=== PATIENT | female | born 1990 ===

== ENCOUNTER 2020-03-03 09:58 | Emergency (ER) | payer MEDICAID, SELFPAY ==
--- NOTE | 2020-03-03 | ECG_ITS ---
Test Reason : CHEST PAIN Blood Pressure : / mmHG Vent. Rate : 069 BPM Atrial Rate : 069 BPM P-R Int : 148 ms QRS Dur : 094 ms QT Int : 420 ms P-R-T Axes : 023 008 009 degrees QTc Int : 450 ms Normal sinus rhythm Normal ECG When compared with ECG of 16-SEP-2017 18:59, No significant change was found Referred By: Girish Andrade Electronically Signed By:Leonel Bingham
[2020-03-03 10:57] VITALS: BP 157/78; PULSE 88; RESP 18; TEMP 37.1; O2SAT 98; BMI 44.6
== END 2020-03-03 12:40 | disposition left against medical advice (07) ==
PROVIDERS: Emergency Provider Emergency Medicine
DX: R07.9 Chest pain, unspecified (principal); F17.200 Nicotine dependence, unspecified, uncomplicated
CPT/HCPCS: 93005; 99283

== ENCOUNTER 2020-03-31 14:40 | Outpatient (REF) | payer MEDICAID, SELFPAY ==
[2020-03-31 17:19] LABS: Glucose Urine UA NEG (NEG); Leukocyte Esterase Urine 1+ (NEG); Nitrite Urine NEG (NEG); PH 6.5 (5.0-8.0); Specific Gravity - Urine 1.025 (1.005-1.025); Urine Blood NEG (NEG); Urine Ketones NEG (NEG); Urine Protein NEG (NEG-TRACE)
[2020-03-31 17:49] LABS: Appearance Urine HAZY; Color Urine YELLOW
[2020-03-31 18:01] LABS: RBC Urine 0 /HPF (0); Squamous Epithelial Cell Urine 1+ /LPF
[2020-03-31 18:02] LABS: Bacteria Urine 2+ /LPF
== END 2020-03-31 14:41 | disposition home or self-care (01) ==
LOC: HO.LNP 14:40
PROVIDERS: Visit Provider Advanced Practice Midwife
DX: O21.9 Vomiting of pregnancy, unspecified (principal); O26.899 Other specified pregnancy related conditions, unspecified trimester; R30.0 Dysuria; Z3A.00 Weeks of gestation of pregnancy not specified
CPT/HCPCS: 81001; 81025; 99202

== ENCOUNTER 2020-04-07 12:31 | Outpatient (REF) | payer MEDICAID, SELFPAY ==
--- NOTE | 2020-04-07 12:36 | US_ITS ---
EXAMINATION: FIRST TRIMESTER OB ULTRASOUND CLINICAL INFORMATION: Unknown LMP. Check size and dates. COMPARISON: None TECHNIQUE: Transabdominal first trimester OB ultrasound FINDINGS: The uterus is normal in size and shape. There is an intrauterine gestational sac. Ruby-rump length measures 2.6 cm suggesting gestational age of 9 weeks 3 days with estimated date of delivery of 11/07/2020. heart rate is 160 bpm. There is a yolk sac. The right maternal ovary is normal and measures 4.6 x 2 x 2.5 cm. The left maternal ovary measures 3.2 x 1.6 x 3.2 cm and contains a small 1.4 x 0.7 x 1.2 cm cyst. There is no fluid in the pelvis. US/US OB <= 14 weeks fetus IMPRESSION: Single viable intrauterine . From today's measurements, gestational age is estimated at 9 weeks 3 days with estimated date of delivery of 11/07/2020.
== END 2020-04-07 12:32 | disposition home or self-care (01) ==
LOC: HO.US 12:31
PROVIDERS: Visit Provider Advanced Practice Midwife
DX: O21.9 Vomiting of pregnancy, unspecified (principal); O26.841 Uterine size-date discrepancy, first trimester; Z3A.09 9 weeks gestation of pregnancy
CPT/HCPCS: 76801

== ENCOUNTER → 2020-05-06 11:06 | Outpatient (BNVA) | payer MEDICAID, SELFPAY | PROVIDERS: Visit Provider Advanced Practice Midwife | CPT/HCPCS: 99212 ==

== ENCOUNTER 2020-05-07 08:53 | Outpatient (REF) | payer MEDICAID, SELFPAY ==
--- NOTE | ~2020-05-07 | US_ITS ---
EXAMINATION: OBSTETRICAL ULTRASOUND, FIRST TRIMESTER HISTORY: 30-year-old at 13.5 weeks of gestation NT screening COMPARISON: 04/07/2020 TECHNIQUE: Real time transabdominal imaging with color and M-mode Doppler. FINDINGS: A single, live IUP CRL of 77 mm c/w 13.6wks is noted. Heart Rate: 160 beats per minute. Normal yolk sac seen. NT was 1.5.mm. NB Present The embryo appears sonographically wnl for this GA. Both maternal ovaries are seen and appear normal. GESTATIONAL AGE: 1. Established GA: 13.5 wks 2. GA from [facility]: 13.6 wks ESTIMATED DATE OF DELIVERY: 1. Established VALENTIN: 11/08/2019 2. VALENTIN from A: 11/06/2020 US/US OB 1T nuc measure IMPRESSION: 1. A single live IUP 2. Size equals dates 3. NT of 1.5 mm MFM Consultation: I reviewed the ultrasound findings along with significance of NT measurement. The NT of less than 3mm is generally reassuring. However, the sensitivity for T21 detection is only 60%. I reviewed the availability of serum aneuploidy screening which includes cell-free DNA and placental protein based tests. I discussed the sensitivity, false-positive rate, and other limitations associated with each test. I also reviewed the availability of invasive diagnostic tests that are associated small but definite risk of miscarriage. We also reviewed the differences between screening tests and diagnostic tests. After our discussion, she opted for the First trimester screening that is based on cell-free DNA or non-invasive testing (NIPT). The result will be faxed to your office in approximately 7 days. A follow up at 18 weeks for survey has been scheduled. Thank you very much for this referral. Total time 30 minutes. The time spent was devoted to counseling the patient about the disease and diagnosis, coordinating care including reviewing her records, pertinent lab data and studies, as well as discussing diagnostic evaluation and workup, plan therapeutic interventions and future disposition of care. This includes any additional research needed to obtain further information in formulating the plan of care of this patient. This note was generated with a voice recognition program. Please excuse any errors which may have been overlooked during my review of this note. Sometimes these errors may affect the content or meaning of a given sentence.
== END 2020-05-07 08:54 | disposition home or self-care (01) ==
LOC: HO.US 08:53
PROVIDERS: Visit Provider Advanced Practice Midwife
DX: O99.211 Obesity complicating pregnancy, first trimester (principal); E66.9 Obesity, unspecified; Z3A.13 13 weeks gestation of pregnancy; Z36.82 Encounter for antenatal screening for nuchal translucency
CPT/HCPCS: 76813; 81003; 99212

== ENCOUNTER 2020-05-07 12:55 | Outpatient (REF) | payer MEDICAID, SELFPAY ==
[2020-05-08 12:02] LABS: BV Int Neg Control Negative (Negative); BV Int Pos Control Positive (Positive)
[2020-05-08 13:22] LABS: C. trachomatis RNA TMA NOT DETECTED (NOT DETECTED); N. gonorrhoeae RNA TMA NOT DETECTED (NOT DETECTED)
== END 2020-05-07 12:56 | disposition home or self-care (01) ==
LOC: HO.LAB 12:55
PROVIDERS: Visit Provider Advanced Practice Midwife
DX: Z34.90 Encounter for supervision of normal pregnancy, unspecified, unspecified trimester (principal)
CPT/HCPCS: 36415; 87480; 87491; 87510; 87591; 87660; 88142

== ENCOUNTER 2020-05-10 09:39 | Outpatient (REF) | payer MEDICAID, SELFPAY ==
[2020-05-10 11:42] LABS: MANUAL DIFF FLAG NO
[2020-05-10 11:48] LABS: Basophils Percent Auto 0.2 % (0-2); Eosinophils Absolute Auto 0.1 X10*3/uL (0.0-0.4); Eosinophils Percent Auto 1.4 % (0-4); Hematocrit 31.4 % (37-47); Hemoglobin 10.3 g/dl (12.0-16.0); Imm Gran Abs Auto 0.02 X10*3/uL (0.00-0.03); Imm Gran Pct Auto 0.2 % (0.0-0.4); Lymphocytes Absolute Auto 1.9 X10*3/uL (1.2-4.9); Lymphocytes Percent Auto 19.8 % (20-40); Mean Corpuscular HGB Conc 32.8 g/dl (31.0-35.0); Mean Corpuscular Hemoglobin 28.9 pg (27.0-33.0); Mean Platelet Volume 11.1 fL (9.4-12.3); Monocytes Absolute Auto 0.4 X10*3/uL (0.1-1.2); Monocytes Percent Auto 4.3 % (2-11); Neutrophils Absolute Auto 7.2 X10*3/uL (2.0-8.3); Neutrophils Percent Auto 74.1 % (45-73); Platelet Count 254 X10*3/uL (160-400); Red Blood Count 3.57 X10*6/uL (4.20-5.50); Red Cell Distribution Width 13.8 % (11.0-16.0); White Blood Count 9.8 X10*3/uL (4.8-10.8)
[2020-05-10 12:11] LABS: Glucose 1 Hour 137 mg/dL
[2020-05-10 12:18] LABS: Amphetamine Screen Urine Not Detected (Not Detect); Barbiturates, Urine Not Detected (Not Detect); Benzodiazepines Screen Urine Not Detected (Not Detect); Cannabinoid Screen Urine Not Detected (Not Detect); Cocaine Screen Urine Not Detected (Not Detect); Opiate Screen Urine Not Detected (Not Detect); Phencyclidine Screen Urine Not Detected (Not Detect)
[2020-05-10 12:41] LABS: Syphilis Screen Nonreactive (Nonreactive)
[2020-05-11 04:35] LABS: HIV Num 1 0.05 S/CO (0.00-0.99)
[2020-05-11 04:36] LABS: HIV AB/AG Nonreactive (Nonreactive)
[2020-05-11 04:44] LABS: HBsAGNum1 0.14 S/CO (0.00-0.99); Hepatitis B Surface Antigen Negative (Negative); ~HepC Num1 0.06 S/CO (0.00-0.79); ~Hepatitis C Antibody Nonreactive (Nonreactive)
[2020-05-11 21:52] LABS: Rubella IgG Antibody <0.90 Index
== END 2020-05-10 09:40 | disposition home or self-care (01) ==
LOC: HO.LAB 09:39
PROVIDERS: Visit Provider Advanced Practice Midwife
DX: Z34.90 Encounter for supervision of normal pregnancy, unspecified, unspecified trimester (principal); Z32.01 Encounter for pregnancy test, result positive
CPT/HCPCS: 80307; 82951; 85025; 86762; 86780; 86787; 86803; 86850; 86900; 86901; 87086; 87340; 87389

== ENCOUNTER → 2020-06-04 14:50 | Outpatient (BNVA) | payer MEDICAID, SELFPAY | PROVIDERS: Visit Provider Advanced Practice Midwife | DX: O99.810 Abnormal glucose complicating pregnancy (principal); Z3A.17 17 weeks gestation of pregnancy; E66.01 Morbid (severe) obesity due to excess calories; A59.9 Trichomoniasis, unspecified; Z36.3 Encounter for antenatal screening for malformations | CPT/HCPCS: 99212 ==

== ENCOUNTER → 2020-06-08 14:16 | Outpatient (BNVA) | payer MEDICAID, SELFPAY | PROVIDERS: Visit Provider Advanced Practice Midwife | DX: Z34.02 Encounter for supervision of normal first pregnancy, second trimester (principal); Z3A.18 18 weeks gestation of pregnancy; A59.9 Trichomoniasis, unspecified; R60.9 Edema, unspecified; R10.33 Periumbilical pain; Z36.3 Encounter for antenatal screening for malformations | CPT/HCPCS: 81003; 99212 ==

== ENCOUNTER 2020-06-11 10:38 | Outpatient (REF) | payer MEDICAID, SELFPAY ==
--- NOTE | ~2020-06-11 | US_ITS ---
EXAMINATION: US OBSTETRICAL CLINICAL INFORMATION: 30-year-old at 18.5 weeks of gestation Screening for COMPARISON: 05/07/2020 TECHNIQUE: Real-time transabdominal ultrasound was performed using C1-5 megahertz transducer. FINDINGS: A single, active, fetus is seen in transverse presentation. The placenta is anterior without previa, and the amniotic fluid volume is wnl. The placental cord insertion is marginal. Velamentous cord insertion could not be ruled out. MEASUREMENTS: 1. Biparietal Diameter: 4.4 cm; 19.3 wks 2. Occipital Frontal Diameter: 6.1 cm 3. Head Circumference: 16.5 cm; 19.2 wks 4. Abdominal Circumference: 14.29 cm; 20.1 wks 5. Femur Length: 3.0 cm; 19.2 wks 6. Humerus Length: 2.9 cm; 19.4 wks 7. Tibia Length: 2.7 cm; 19.5 wks 8. Ulna Length: 2.7 cm; 20.0 wks 9. Lateral ventricle: 0.75 cm 10. Cerebellum: 2.0 cm; 20.5 wks 11. Cisterna Magna: 0.3 cm 12. Nuchal Fold: 3.3 mm 13. Heart Rate: 155 beats per minute Rt ovary: normal Lt ovary: normal Cervical length 4.5 cm on T/A. GESTATIONAL AGE: 1. Established GA: 18.5 wks 2. GA from [facility]: 19.4 wks ESTIMATED DATE OF DELIVERY: 1. Established VALENTIN: 11/07/2020 2. VALENTIN from [facility]: 11/01/2020 ANATOMY: The views of the spine were suboptimal due to position. The visualized anatomy includes but not limited to: 1. Cranium: Normal 2. Intracranial anatomy: cavum septum pellucidi, lateral ventricles, choroid plexus, cerebellum, posterior fossa, third and fourth ventricles. 3. face: orbits, lip/palate, profile, nasal bone 4. Heart: four-chamber view of the heart, ventricular septum, foramen ovale, pulmonary vein, left and right outflow tracts, three-vessel view, 3 vessel trachea view, aortic and ductal arches, situs.. 5. Diaphragm: Normal 6. Abdominal wall: Normal 7. Cord Insertion: Normal 8. Spine: Limited due to position 9. Stomach: Normal size and shape 10. Right Kidney: Normal 11. Left Kidney: Normal 12. 3 vessel cord: Normal 13. Upper extremity: Open hands, fifth digit. 14. Lower extremity: Tibia, fibula, bilateral feet. 15. Bladder: Normal 16. Genitalia: Male, patient aware US/US OB /maternal detail IMPRESSION: 1. Single, living, intrauterine with appropriate biometry. 2. Limited views of the spine. Rest of the anatomy was within normal limits. 3. Marginal placental cord insertion DISCUSSION: I reviewed today's ultrasound findings. We discussed the limitations of ultrasound in diagnosing aneuploidy and other congenital abnormalities. I reviewed the differences between screening test and diagnostic test. Amniocentesis was discussed and declined. She was informed that the baseline incidence of congenital abnormalities is approximately 3-5%. Not all these conditions are diagnosable in utero. A follow-up has been scheduled in 3 weeks. Thank you for allowing me to participate in her care. Total time 30 minutes. The time spent was devoted to counseling the patient about the disease and diagnosis, coordinating care including reviewing her records, pertinent lab data and studies, as well as discussing diagnostic evaluation and workup, plan therapeutic interventions and future disposition of care. This includes any additional research needed to obtain further information in formulating the plan of care of this patient. This note was generated with a voice recognition program. Please excuse any errors which may have been overlooked during my review of this note. Sometimes these errors may affect the content or meaning of a given sentence.
== END 2020-06-11 10:39 | disposition home or self-care (01) ==
LOC: HO.US 10:38
PROVIDERS: Visit Provider Advanced Practice Midwife
DX: O99.810 Abnormal glucose complicating pregnancy (principal); O99.212 Obesity complicating pregnancy, second trimester; Z36.3 Encounter for antenatal screening for malformations; E66.01 Morbid (severe) obesity due to excess calories
CPT/HCPCS: 76811

== ENCOUNTER 2020-07-02 11:11 | Outpatient (REF) | payer MEDICAID, SELFPAY ==
--- NOTE | ~2020-07-02 | US_ITS ---
EXAMINATION: OBSTETRICAL ULTRASOUND, Follow up HISTORY: 30-year-old at the 21.5 weeks of gestation Incomplete survey Size date discrepancy High BMI COMPARISON: 06/11/2020 TECHNIQUE: Real time transabdominal imaging with color and M-mode Doppler. PRESENTATION: Vertex PLACENTA LOCATION: Anterior. Marginal placental cord insertion. AMNIOTIC FLUID: Normal MEASUREMENTS: 1. Biparietal Diameter: 5.3 cm; 22.2 wks 2. Head Circumference: 20.2 cm; 22.3 wks 3. Abdominal Circumference: 17.7 cm; 22.5 wks 4. Femur Length: 3.9 cm; 22.3 wks 5. Heart Rate: 158 beats per minute WEIGHT: Estimated weight is 507 grams (1 lbs 2 oz) -- 82 %. Normal views of lateral cerebral ventricle, profile, nose/lips, 4ch view, LVOT, RVOT, gender. GESTATIONAL AGE: 1. Established GA: 22.4 wks 2. GA from [facility]: 21.5 wks ESTIMATED DATE OF DELIVERY: 1. Established VALENTIN: 11/07/2020 2. VALENTIN from [facility]: 11/01/2020 US/US OB follow up IMPRESSION: 1. A single fetus with appropriate interval growth. 2. Previously limited views of the anatomy were seen as listed above. No abnormalities were noted in visualized anatomy. 3. This completes the survey. I reviewed the limitations of ultrasound in diagnosing aneuploidy and other congenital abnormalities. Amniocentesis was again reviewed and she declined. She was informed that the baseline instance of congenital abnormalities and defects in the general population is approximately 3-5%. Not all these conditions are diagnosable in utero. RECOMMENDATIONS: 1. f/u in 4 weeks (not scheduled) Thank you very much for this referral. This note was generated with a voice recognition program. Please excuse any errors which may have been overlooked during my review of this note. Sometimes these errors may affect the content or meaning of a given sentence.
== END 2020-07-02 11:12 | disposition home or self-care (01) ==
LOC: HO.US 11:11
PROVIDERS: Visit Provider Advanced Practice Midwife
DX: Z36.3 Encounter for antenatal screening for malformations (principal); O99.212 Obesity complicating pregnancy, second trimester; O26.892 Other specified pregnancy related conditions, second trimester; N89.8 Other specified noninflammatory disorders of vagina; O98.512 Other viral diseases complicating pregnancy, second trimester; A59.9 Trichomoniasis, unspecified; Z3A.21 21 weeks gestation of pregnancy
CPT/HCPCS: 76816; 81003; 99212

== ENCOUNTER 2020-07-02 13:38 | Outpatient (REF) | payer MEDICAID, SELFPAY ==
[2020-07-03 03:29] LABS: CT PCR NOT DETECTED (Not Detect.); NG PCR NOT DETECTED (Not Detect.)
[2020-07-03 12:34] LABS: BV Int Neg Control Negative (Negative); BV Int Pos Control Positive (Positive)
== END 2020-07-02 13:39 | disposition home or self-care (01) ==
LOC: HO.LAB 13:38
PROVIDERS: Visit Provider Advanced Practice Midwife
DX: O98.512 Other viral diseases complicating pregnancy, second trimester (principal); A59.9 Trichomoniasis, unspecified; O26.892 Other specified pregnancy related conditions, second trimester; N89.8 Other specified noninflammatory disorders of vagina; Z36.3 Encounter for antenatal screening for malformations; Z3A.21 21 weeks gestation of pregnancy
CPT/HCPCS: 87480; 87491; 87510; 87591; 87660

== ENCOUNTER 2020-07-20 14:02 | Outpatient (REF) | payer MEDICAID, SELFPAY ==
[2020-07-21 09:59] LABS: CT PCR NOT DETECTED (Not Detect.); NG PCR NOT DETECTED (Not Detect.)
== END 2020-07-20 14:03 | disposition home or self-care (01) ==
LOC: HO.LAB 14:02
PROVIDERS: Visit Provider Advanced Practice Midwife
DX: Z34.90 Encounter for supervision of normal pregnancy, unspecified, unspecified trimester (principal)
CPT/HCPCS: 87491; 87591

== ENCOUNTER 2021-11-02 12:33 | Outpatient (REF) | payer MEDICAID, SELFPAY ==
--- NOTE | ~2021-11-02 | XR_ITS ---
EXAMINATION: XR CHEST CLINICAL INFORMATION: Morbid obesity COMPARISON: March 26, 2018 TECHNIQUE: 2 views of the chest were obtained. FINDINGS: No significant abnormality is noted involving the heart, lungs, mediastinum, bony thorax or soft tissues. XR/XR chest 2V IMPRESSION: No acute disease.
[2021-11-02 13:16] LABS: MANUAL DIFF FLAG NO
--- NOTE | 2021-11-02 13:33 | ECG_ITS ---
Test Reason : E66.01 OBESITY Blood Pressure : / mmHG Vent. Rate : 069 BPM Atrial Rate : 069 BPM P-R Int : 148 ms QRS Dur : 090 ms QT Int : 426 ms P-R-T Axes : 029 020 009 degrees QTc Int : 456 ms Normal sinus rhythm Normal ECG When compared with ECG of 03-MAR-2020 10:29, No significant change was found Referred By: Kyle Ellis Electronically Signed By:MILAGROS JEAN-BAPTISTE
[2021-11-02 13:40] LABS: Basophils Percent Auto 0.2 % (0-2); Eosinophils Absolute Auto 0.2 X10*3/uL (0.0-0.4); Eosinophils Percent Auto 1.8 % (0-4); Hemoglobin 11.8 g/dl (12.0-16.0); Imm Gran Abs Auto 0.02 X10*3/uL (0.00-0.03); Imm Gran Pct Auto 0.2 % (0.0-0.4); Lymphocytes Absolute Auto 2.4 X10*3/uL (1.2-4.9); Lymphocytes Percent Auto 28.7 % (20-40); Mean Corpuscular HGB Conc 32.8 g/dl (31.0-35.0); Mean Corpuscular Hemoglobin 28.3 pg (27.0-33.0); Mean Corpuscular Volume 86.3 fL (80.0-98.0); Mean Platelet Volume 10.4 fL (9.4-12.3); Monocytes Absolute Auto 0.5 X10*3/uL (0.1-1.2); Monocytes Percent Auto 5.7 % (2-11); Neutrophils Absolute Auto 5.3 x10*3/uL (2.0-8.3); Neutrophils Percent Auto 63.4 % (45-73); Platelet Count 287 X10*3/uL (160-400); Red Blood Count 4.17 X10*6/uL (4.20-5.50); White Blood Count 8.4 X10*3/uL (4.8-10.8)
[2021-11-02 13:52] LABS: Estimated Average Glucose 111 mg/dL; Hemoglobin A1c % 5.5 %
[2021-11-02 14:10] LABS: Alanine Aminotransferase 18 U/L (0-31); Albumin Level 4.1 g/dL (3.5-5.0); Alkaline Phosphatase 85 U/L (39-117); Anion Gap 14 (12-20); Aspartate Amino Transferase 17 U/L (5-31); Bilirubin Total 0.2 mg/dL (0.0-1.0); Blood Urea Nitrogen 13 mg/dL (9-16); C Reactive Protein 2.79 mg/dL (< or = 0.50); Calcium 8.9 mg/dL (8.4-10.2); Carbon Dioxide 25 mmol/L (22-29); Chloride 105 mmol/L (96-108); Cholesterol 229 mg/dL; Estimated Glomerular Filt Rate > 60; Glucose Random 88 mg/dL (60-115); HDL Cholesterol 44 mg/dL; Iron 61 mcg/dL (30-160); LDL Cholesterol Calculated 165 mg/dl; Percent Iron Saturation 19 % (15-50); Potassium 4.4 mmol/L (3.3-5.1); Sodium 140 mmol/L (135-145); Total Iron Binding Capacity 325 mcg/dL (228-428); Total Protein 7.3 g/dL (6.5-8.0); Triglycerides 100 mg/dL; Unsaturated Iron Binding 264 ug/dL
[2021-11-02 14:36] LABS: Ferritin 74 ng/mL (10-122); Insulin 25 uU/mL (2-29); TSH reflex Free T4 2.41 uIU/mL (0.32-4.0); Vitamin D 25-OH Total 19.7 ng/mL (>30)
[2021-11-02 14:47] LABS: Folate 9.5 ng/mL (> or = 4.0); Vitamin B12 329 pg/mL (200-900)
[2021-11-03 12:26] LABS: PTHI 56 pg/mL (16-77)
[2021-11-05 15:32] LABS: Zinc 84 mcg/dL (60-130)
[2021-11-07 13:37] LABS: Vitamin B1 15 nmol/L (8-30)
[2021-11-09 00:41] LABS: Vitamin A 40 mcg/dL (38-98)
== END 2021-11-02 12:34 | disposition home or self-care (01) ==
LOC: HO.LAB 12:33
PROVIDERS: Visit Provider Physician Assistant Surgical
DX: E66.01 Morbid (severe) obesity due to excess calories (principal); Z68.42 Body mass index [BMI] 45.0-49.9, adult; Z71.3 Dietary counseling and surveillance
CPT/HCPCS: 36415; 71046; 80053; 80061; 82306; 82607; 82728; 82746; 83036; 83525; 83540; 83970; 84425; 84443; 84590; 84630; 85025; 86140; 93005; 99202

== ENCOUNTER 2021-11-09 08:44 | Emergency (ER) | payer MEDICAID, SELFPAY ==
--- NOTE | ~2021-11-09 | XR_ITS ---
EXAMINATION: XR TOES, LEFT CLINICAL INFORMATION: Left first toe injury. COMPARISON: 09/04/2017 TECHNIQUE: 3 views of the left toes were obtained. FINDINGS: Again seen are well corticated ossific fragments medial to the first interphalangeal joint, present previously and unchanged. There is mild osteoarthritis of the first metatarsophalangeal joint. There is osteoarthritis of the first metatarsal sesamoids with a bipartite first sesamoid. All of these findings are chronic and were present previously as well. No acute fracture seen. Normal mineralization and alignment in the remainder of the left foot. XR/XR toe LT min 2V IMPRESSION: No acute osseous abnormality.
[2021-11-09 10:05] VITALS: BP 127/61; PULSE 76; RESP 18; TEMP 36.6; O2SAT 97; BMI 46.3
[2021-11-09] MEDS: predniSONE 20 MG TABLET 60 MG PO (12:00)
[2021-11-09] MEDS: oxyCODONE HCl Immed Release 5 MG TABLET PO (12:00)
[2021-11-09 12:18] LABS: MANUAL DIFF FLAG NO
[2021-11-09 12:22] LABS: Basophils Percent Auto 0.2 % (0-2); Eosinophils Absolute Auto 0.2 X10*3/uL (0.0-0.4); Eosinophils Percent Auto 2.1 % (0-4); Hematocrit 36.2 % (37.0-47.0); Hemoglobin 11.6 g/dl (12.0-16.0); Imm Gran Abs Auto 0.03 X10*3/uL (0.00-0.03); Imm Gran Pct Auto 0.3 % (0.0-0.4); Lymphocytes Absolute Auto 2.7 X10*3/uL (1.2-4.9); Lymphocytes Percent Auto 29.4 % (20-40); Mean Corpuscular Hemoglobin 27.6 pg (27.0-33.0); Mean Platelet Volume 10.2 fL (9.4-12.3); Monocytes Absolute Auto 0.5 X10*3/uL (0.1-1.2); Monocytes Percent Auto 5.6 % (2-11); Neutrophils Absolute Auto 5.6 x10*3/uL (2.0-8.3); Neutrophils Percent Auto 62.4 % (45-73); Platelet Count 281 X10*3/uL (160-400); Red Blood Count 4.21 X10*6/uL (4.20-5.50)
--- NOTE | 2021-11-09 12:45 | ED.EXTPRO ---
HPI - Extremity Problem General Chief complaint: Extremity Problem Stated complaint: L toe swelling Time Seen by Provider: 11/09/21 11:16 Source: patient and family Mode of arrival: ambulatory Limitations: no limitations History of Present Illness HPI Narrative: 31-year-old female with a past medical history of anemia and morbid obesity presenting to the ER with complaints of atraumatic left great toe pain that started today. She reports that she does not recall injuring herself at all her the past few days reports she did have an injury a few years ago although did not have pain like this. She denies having history of gout. She denies any fevers, chills, chest pain or shortness of breath, recent travel, recent immobilization, lower extremity edema or calf tenderness, rashes, recent falls or trauma or any other symptoms complaints or concerns at this time. MD Complaint: joint swelling and joint pain Onset (ago): day(s) (today) Pain Consistency: constant Location: left and toe (Great) Severity scale (1-10): >10 Quality: burning, aching, sharp and constant Radiation: none Relieving factors: nothing Exacerbating factors: range of motion, weight bearing, walking and palpation Associated symptoms: denies other symptoms Related Data Previous Rx's Medication Instructions Recorded cholecalciferol (vitamin D3) 125 125 mcg PO DAILY #30 caps 11/02/21 mcg (5,000 unit) capsule oxycodone 5 mg tablet 5 mg PO Q6H PRN pain #14 tabs 11/09/21 prednisone 20 mg tablet 40 mg PO DAILY gout 5 days #10 tabs 11/09/21 Allergies Allergy/AdvReac Type Severity Reaction Status Date / Time ibuprofen [IBUPROFEN] Allergy Intermediate SWELLING Verified 11/02/21 11:03 Review of Systems Review of Systems: Constitutional : No Weight loss, No Fever, No Chills, No Night Sweats, No Fatigue, No Malaise ENT/Mouth : No Hearing loss, No Ear Pain, No Nasal Congestion, No Sinus Pain, No Hoarseness, No sore throat, No Rhinorrhea, No Swallowing Difficulty Eyes: No Eye Pain, No Swelling, No Redness, No Foreign Body, No Discharge, No Vision Changes Cardiovascular : No Chest Pain, No SOB, No Dyspnea on Exertion, No Orthopnea, No Edema, No Palpitations Respiratory : No Cough, No Sputum, No Wheezing, No Smoke Exposure, No Dyspnea Gastrointestinal : No Nausea, No Vomiting, No Diarrhea, No Constipation, No abdominal Pain, No Hematochezia, No Melena Genitourinary : no irregular bleeding, No Dysuria, No Urinary Frequency, No Hematuria, No Urinary Incontinence, No Urgency, No Flank Pain, No Urinary Flow Changes, No Hesitancy Musculoskeletal : + left great toe joint pain, No Myalgias, No Joint Swelling Skin : No Skin Lesions, No rash Neuro : No Weakness, No Numbness, No Paresthesias, No Loss of Consciousness, No Dizziness, No Headache Psych : No Anxiety/Panic, No Depression, No SI/HI/AH/VH, No Social Issues, Heme/Lymph: No Bruising, No Bleeding,No Lymphadenopathy Endocrine : No Polyuria, No Polydipsia, No Temperature Intolerance Yes all other systems are reviewed and are negative [facility] Past Medical History Attestation statement: The following information was validated with the patient. Source: old records reviewed, obtained from family and nursing notes reviewed Medical History No known health problems Surgical History Hx of oral surgery Family History Family History Mother Cervical cancer Hx of diabetes mellitus Hx of essential hypertension Father No problems noted. Brother No problems noted. Brother No problems noted. Brother No problems noted. Sister No problems noted. Sister No problems noted. Sister No problems noted. Social History Social History Household Members: Family Housing: Apartment Alcohol intake: current Alcohol intake frequency: holidays/special occasions only Patient Tobacco Use Status: Former Tobacco user Quit Date: 10 DAYS AGO Advance Directives: No Advance Directives Information Provided: No Physical Exam Vital Signs: Vital Signs: Last Vital Signs Temp 98 F 11/09/21 10:05 Pulse 76 11/09/21 10:05 Resp 18 11/09/21 10:05 BP 127/61 11/09/21 10:05 Pulse Ox 97 11/09/21 10:05 O2 Del Method 11/09/21 10:05 BMI result Body Mass Index 46.3 vital signs have been reviewed as normal and appeared to be correct. Blood pressure normal Heart rate normal. Respiration rate normal. Temperature normal. Oxygen saturation normal. Appearance: Alert. Oriented X3. No acute distress. Head: Normal external exam. Normocephalic. Atraumatic. Eyes: PERRLA. EOMI. Conjunctiva and sclera normal. Eyelids normal. ENT: Pharynx normal. Uvula midline. Moist mucous membranes. Neck: Normal inspection. Neck supple. FROM. CVS: Normal heart rate and rhythm. Respiratory: No respiratory distress. Painless inspiration. Skin: Skin warm and dry. Normal skin color. Normal skin turgor. No rashes/lesions/lacerations noted. Extremities: Patient moderate tenderness palpation to the great toe with mild soft tissue swelling and erythema. Not consistent with septic joint/ cellulitis. There is no streaking/ fluctuance or induration noted. There is no lower extremity edema or calf tenderness noted bilaterally. Otherwise all other extremities exhibit normal range of motion nontender. Neuro: Oriented X 3. No motor deficit. No sensory deficit. Reflexes normal. Normal steady gait. No focal neuro deficits noted. Vascular: + radial pulses/+ 2 distal pedal pulses/+2 dorsalis pedis b/l. Normal cap refill. No cyanosis noted to upper extremity nails and lower extremity toes nails. Course Course Course Narrative: 11:20am 31-year-old female with a past medical history of anemia and morbid obesity presenting to the ER with complaints of atraumatic left great toe pain that started today. Plan: X-ray and labs to assess for possible gout provide symptomatic treatment with prednisone and oxycodone due to patient reports she is allergic to Motrin and re-evaluate. Reevaluation(s) Reevaluation #1: - Labs reviewed patient with mild baseline anemia similar compared to prior. BUN 19. CRP 2.61. uric acid 7.5. Otherwise all other labs are within normal limits. - Therefore this is consistent with gout. Will DC home with oxycodone and prednisone as patient reports she is allergic to Motrin therefore will not give indomethacin with instructions to follow-up with PCP and return if any new or worsening symptoms. Patient understands agrees with this plan. Time: 13:20 MDM - Extremity (Nontraumatic) Medical Records Attestation: I reviewed the patient's medical records. Lab Data Attestation: I reviewed the patient's lab results. Result diagrams: 11/09/21 12:14 11/09/21 12:14 Labs: Lab Results 11/09/21 11/09/21 Range/Units 12:14 12:14 WBC 9.0 (4.8-10.8) X10*3/uL RBC 4.21 (4.20-5.50) X10*6/uL Hgb 11.6 L (12.0-16.0) g/dl Hct 36.2 L (37.0-47.0) % MCV 86.0 (80.0-98.0) fL MCH 27.6 (27.0-33.0) pg MCHC 32.0 (31.0-35.0) g/dl RDW 14.0 (11.0-16.0) % Plt Count 281 (160-400) X10*3/uL MPV 10.2 (9.4-12.3) fL Immature Gran % (Auto) 0.3 (0.0-0.4) % Neut % (Auto) 62.4 (45-73) % Lymph % (Auto) 29.4 (20-40) % [place] % (Auto) 5.6 (2-11) % Eos % (Auto) 2.1 (0-4) % Baso % (Auto) 0.2 (0-2) % Lymph # (Auto) 2.7 (1.2-4.9) X10*3/uL [place] # (Auto) 0.5 (0.1-1.2) X10*3/uL Eos # (Auto) 0.2 (0.0-0.4) X10*3/uL Baso # (Auto) 0.0 (0.0-0.2) X10*3/uL Abs Immat Gran (auto) 0.03 (0.00-0.03) X10*3/uL Absolute Neuts (auto) 5.6 (2.0-8.3) x10*3/uL Absolute Nucleated RBC 0.000 (0.0-0.012) X10*3/uL Nucleated RBC % (auto) 0.0 (0.0-0.2) /100WBC Sodium 138 (135-145) mmol/L Potassium 4.2 (3.3-5.1) mmol/L Chloride 104 (96-108) mmol/L Carbon Dioxide 24 (22-29) mmol/L Anion Gap 14 (12-20) BUN 19 H (9-16) mg/dL Creatinine 0.73 (0.5-1.4) mg/dL Estim Creat Clear Calc 144.2 Estimated GFR > 60 Random Glucose 79 (60-115) mg/dL Uric Acid 7.5 H (2.4-5.7) mg/dL Calcium 8.9 (8.4-10.2) mg/dL Magnesium 2.0 (1.6-2.6) mg/dL Total Bilirubin 0.2 (0.0-1.0) mg/dL AST 18 (5-31) U/L ALT 15 (0-31) U/L Alkaline Phosphatase 75 (39-117) U/L C-Reactive Protein 2.61 H (< or = 0.50) mg/dL Total Protein 7.3 (6.5-8.0) g/dL Albumin 4.0 (3.5-5.0) g/dL Imaging Data left toe/foot xray: Attestation: I personally reviewed and interpreted this imaging study as follows: Radiologist's impression: FINDINGS: Again seen are well corticated ossific fragments medial to the first interphalangeal joint, present previously and unchanged. There is mild osteoarthritis of the first metatarsophalangeal joint. There is osteoarthritis of the first metatarsal sesamoids with a bipartite first sesamoid. All of these findings are chronic and were present previously as well. No acute fracture seen. Normal mineralization and alignment in the remainder of the left foot. XR/XR toe LT min 2V IMPRESSION: No acute osseous abnormality. Discharge Plan Discharge Clinical Impression: Pain of left great toe, Osteoarthritis of foot, Gout Patient Disposition: Home, Self-Care Instructions: Low Purine Diet (ED), Osteoarthritis (ED), Gout (ED) Prescriptions: New oxycodone 5 mg tablet 5 mg PO Q6H PRN (Reason: pain) Qty: 14 0RF Rx Instructions: Partial Fill upon patient request. prednisone 20 mg tablet 40 mg PO DAILY 5 Days Qty: 10 0RF No Action cholecalciferol (vitamin D3) 125 mcg (5,000 unit) capsule 125 mcg PO DAILY Qty: 30 3RF Referrals: Tobias Russell MD [Primary Care Provider] - 2 days Stand Alone Forms: Work/School Release
[2021-11-09 13:11] LABS: C Reactive Protein 2.61 mg/dL (< or = 0.50)
[2021-11-09 13:16] LABS: Alanine Aminotransferase 15 U/L (0-31); Alkaline Phosphatase 75 U/L (39-117); Anion Gap 14 (12-20); Aspartate Amino Transferase 18 U/L (5-31); Bilirubin Total 0.2 mg/dL (0.0-1.0); Blood Urea Nitrogen 19 mg/dL (9-16); Calcium 8.9 mg/dL (8.4-10.2); Carbon Dioxide 24 mmol/L (22-29); Chloride 104 mmol/L (96-108); Creatinine Clr Calc Pharmacy 144.2; Estimated Glomerular Filt Rate > 60; Glucose Random 79 mg/dL (60-115); Potassium 4.2 mmol/L (3.3-5.1); Sodium 138 mmol/L (135-145); Total Protein 7.3 g/dL (6.5-8.0)
[2021-11-09 13:27] LABS: Uric Acid 7.5 mg/dL (2.4-5.7)
[2021-11-09 13:36] LABS: Erythrocyte Sedimentation Rate 55 MM/HR (0-20)
== END 2021-11-09 14:14 | disposition home or self-care (01) ==
PROVIDERS: Physician Assistant Medical; Emergency Provider Emergency Medicine Emergency Medical Services; PCP Internal Medicine
DX: M79.675 Pain in left toe(s) (principal); M19.072 Primary osteoarthritis, left ankle and foot; M10.072 Idiopathic gout, left ankle and foot; E66.01 Morbid (severe) obesity due to excess calories; Z68.42 Body mass index [BMI] 45.0-49.9, adult; Z87.891 Personal history of nicotine dependence
CPT/HCPCS: 36415; 73660; 80053; 83735; 84550; 85025; 85652; 86140; 99283

== ENCOUNTER → 2021-11-24 13:23 | Outpatient (BNVA) | payer MEDICAID, SELFPAY | PROVIDERS: PCP Internal Medicine; Referring Provider Physician Assistant Surgical; Visit Provider Dietitian, Registered | DX: E66.01 Morbid (severe) obesity due to excess calories (principal); Z68.42 Body mass index [BMI] 45.0-49.9, adult | CPT/HCPCS: 97802 ==

== ENCOUNTER → 2021-11-30 14:43 | Outpatient (BNVA) | payer MEDICAID, SELFPAY | PROVIDERS: PCP Internal Medicine; Visit Provider Physician Assistant | DX: Z11.0 Encounter for screening for intestinal infectious diseases (principal) | CPT/HCPCS: 99211 ==

== ENCOUNTER 2021-11-30 16:11 | Outpatient (REF) | payer MEDICAID, SELFPAY ==
[2021-12-02 13:41] LABS: H Pylori Breath Test Positive (Negative)
== END 2021-11-30 16:12 | disposition home or self-care (01) ==
LOC: HO.LNP 16:11
PROVIDERS: Visit Provider Physician Assistant Surgical
DX: E66.01 Morbid (severe) obesity due to excess calories (principal)
CPT/HCPCS: 83013

== ENCOUNTER 2021-12-21 10:04 | Outpatient (REF) | payer MEDICAID, SELFPAY ==
--- NOTE | ~2021-12-21 | FL_ITS ---
EXAMINATION: XR FLUOROSCOPY UPPER GI WITH AIR CLINICAL INFORMATION: Morbid/severe obesity due to excess calories. COMPARISON: None TECHNIQUE: Routine upper GI contrast study was performed in upright and lying position. FINDINGS: Following oral administration of thick barium and effervescent granules, there is normal propagation of bolus from the oral cavity through the pharynx, esophagus into stomach without any evidence of obstruction, narrowing or stricture. On placing patient supine and prone lying, the course, caliber and peristalsis of the stomach, duodenal bulb and the sweep is normal. The mucosal pattern of the stomach and the duodenum is normal. No gastroesophageal reflux or hiatal hernia seen. FLUOROSCOPY TIME: 1.4 minutes DOSE AREA PRODUCT: 26.183 uGy-m2 (microgray-meter squared) FL/FL upper GI w air IMPRESSION: Unremarkable upper GI exam.
--- NOTE | ~2021-12-21 | US_ITS ---
EXAMINATION: US COMPLETE ABDOMEN WITH LIVER ELASTOGRAPHY CLINICAL INFORMATION: Obesity COMPARISON: Previous abdominal ultrasound October 2018 TECHNIQUE: Real-time imaging of the abdominal viscera. Noninvasive ultrasound liver fibrosis assessment is performed using Tamika ElastPQ point quantification shear wave elastography (2D-SWE) with a C5-2 MHz transducer. Multiple elastography samples are obtained. FINDINGS: PANCREAS: Normal. ABDOMINAL AORTA: The proximal, middle, and distal aortic segments are normal in caliber. INFERIOR VENA CAVA: Visualized portions are normal. LIVER: Slightly echogenic liver. The liver demonstrates normal size and contour. No focal lesion or intrahepatic biliary duct dilatation. The right lobe measures 18 cm in length. The left lobe measures 13 cm in length. Portal flow is normal/hepatopedal Shear wave liver elastography median stiffness is 1.6 m/s (reference: normal median stiffness is 1.3 m/s or less). IQR/median stiffness to assess sampling precision is 0.14 (reference: good quality data set is IQR/median stiffness of 0.15 or less). GALLBLADDER: Normal. The gallbladder is physiologically distended without evidence of stones, sludge, polyps, wall thickening or pericholecystic fluid. COMMON BILE DUCT: Normal in caliber measuring 0.3 cm in diameter. RIGHT KIDNEY: Normal. No hydronephrosis. No renal calculi or focal parenchymal lesions. The kidney measures 10 cm in maximum dimension. LEFT KIDNEY: Normal. No hydronephrosis. No renal calculi or focal parenchymal lesions. The kidney measures 11 cm in maximum dimension. SPLEEN: Normal. The spleen measures 10 cm in maximum dimension. FREE FLUID: None. US/US abdomen comp w elastography IMPRESSION: 1. Impression: Echogenic liver. 2. Liver elastography: Adequate liver sampling. In the absence of other known clinical signs, rules out compensated advanced chronic liver disease. REFERENCE: Society of Radiologists in Ultrasound Liver Stiffness Thresholds (2020): LIVER STIFFNESS THRESHOLDS: *Liver Stiffness equal or less than 1.3 m/s: High probability of being normal. *Liver Stiffness less than 1.7 m/s: In the absence of other known clinical signs, rules out compensated advanced chronic liver disease. *Liver Stiffness 1.7-2.1 m/s: Suggestive of compensated advanced chronic liver disease but need further test for confirmation. *Liver Stiffness over 2.1 m/s: Rules in compensated advanced chronic liver disease. *Liver Stiffness over 2.4 m/s: Suggestive of clinically significant portal hypertension. QUALITY OF DATA SET: *IQR/Median value equal or less than 0.15 implies a quality data set. *IQR/Median value over 0.15 implies a poor quality data set. SIGNIFICANT CHANGE FROM PRIOR EXAM: Significant change if liver stiffness measurement is 10% or greater from prior exam. OTHER CONSIDERATIONS: The stage of liver fibrosis may be overestimated in the setting of acute hepatitis, liver inflammation, elevated liver function tests, hepatic vascular congestion, obstructive cholestasis, non-fasting state, and infiltrative diseases such as amyloidosis and lymphoma. In some patients with NAFLD, the liver stiffness thresholds for compensated advanced chronic liver disease may be lower. In causes other than viral hepatitis and NAFLD, liver stiffness thresholds are not well established.
== END 2021-12-21 10:05 | disposition home or self-care (01) ==
LOC: HO.US 10:04
PROVIDERS: Visit Provider Physician Assistant Surgical
DX: E66.01 Morbid (severe) obesity due to excess calories (principal)
CPT/HCPCS: 74246; 76705; 76981

== ENCOUNTER → 2021-12-27 15:33 | Outpatient (BNVA) | payer MEDICAID, SELFPAY | PROVIDERS: PCP Internal Medicine; Visit Provider Physician Assistant Surgical | DX: E66.01 Morbid (severe) obesity due to excess calories (principal); A04.8 Other specified bacterial intestinal infections; Z68.42 Body mass index [BMI] 45.0-49.9, adult | CPT/HCPCS: 99212 ==

== ENCOUNTER → 2022-01-17 14:24 | Outpatient (BNVA) | payer MEDICAID, SELFPAY | PROVIDERS: PCP Internal Medicine; Visit Provider Physician Assistant Surgical | DX: Z11.0 Encounter for screening for intestinal infectious diseases (principal); E66.01 Morbid (severe) obesity due to excess calories; A04.8 Other specified bacterial intestinal infections; Z68.42 Body mass index [BMI] 45.0-49.9, adult | CPT/HCPCS: 83013; 99211; 99212 ==

== ENCOUNTER 2022-01-17 16:17 | Outpatient (REF) | payer MEDICAID, SELFPAY ==
[2022-01-19 13:31] LABS: H Pylori Breath Test Positive (Negative)
== END 2022-01-17 16:18 | disposition home or self-care (01) ==
LOC: HO.LNP 16:17
PROVIDERS: Visit Provider Physician Assistant Surgical
DX: Z01.818 Encounter for other preprocedural examination (principal); Z11.0 Encounter for screening for intestinal infectious diseases
CPT/HCPCS: 83013

== ENCOUNTER → 2022-02-24 15:23 | Outpatient (BNVA) | payer MEDICAID, SELFPAY | PROVIDERS: PCP Internal Medicine; Visit Provider Dietitian, Registered | DX: E66.01 Morbid (severe) obesity due to excess calories (principal); Z68.42 Body mass index [BMI] 45.0-49.9, adult | CPT/HCPCS: 97803 ==

== ENCOUNTER 2022-05-03 12:39 | Emergency (ER) | payer MEDICAID, SELFPAY ==
--- NOTE | 2022-05-03 12:42 | ECG_ITS ---
Test Reason : HEART PALPATATIONS Blood Pressure : / mmHG Vent. Rate : 092 BPM Atrial Rate : 092 BPM P-R Int : 144 ms QRS Dur : 088 ms QT Int : 374 ms P-R-T Axes : 036 006 028 degrees QTc Int : 462 ms Normal sinus rhythm Normal ECG When compared with ECG of 02-NOV-2021 13:47, No significant change was found Referred By: Generic ED Physician Electronically Signed By:ROXANNE BARRAGAN MD
[2022-05-03 13:00] VITALS: BP 157/83; PULSE 77; RESP 18; TEMP 36.6; O2SAT 93; BMI 46.3
--- NOTE | 2022-05-03 13:01 | ED.GENADULT ---
HPI - General Adult General Chief complaint: Arrhythmia/Palpitations Stated complaint: heart palpitations Source: patient and RN notes reviewed Mode of arrival: ambulatory Limitations: no limitations History of Present Illness HPI narrative: 32-year-old female with past medical history significant for anemia, obesity presents for evaluation of numbness or tingling to her lips, tongue and left arm. Since the patient also complaining of palpitations and chest pain he is 6/10. Her symptoms started this morning when she woke up Denies any shortness of breath. Denies any recent medication changes. Denies any new foods Denies any history of cardiac disease Related Data Previous Rx's Medication Instructions Recorded cholecalciferol (vitamin D3) 125 125 mcg PO DAILY #30 caps 11/02/21 mcg (5,000 unit) capsule mecobalamin (vitamin B12) 1,000 1,000 mcg sublingual DAILY #30 tabs 11/21/21 mcg disintegrating tablet,sublingual amoxicillin 500 mg capsule 1,000 mg PO Q12H 14 days #56 caps 01/19/22 clarithromycin 500 mg tablet 500 mg PO Q12H 14 days #28 tabs 01/19/22 omeprazole 20 mg capsule,delayed 20 mg PO BID 14 days #28 caps 01/19/22 release Allergies Allergy/AdvReac Type Severity Reaction Status Date / Time ibuprofen [IBUPROFEN] Allergy Intermediate SWELLING Verified 05/03/22 13:00 Review of Systems Constitutional: Constitutional: Reports as per HPI, Denies chills, Denies fatigue and Denies fever(s) Cardiovascular: Cardiovascular: Reports chest pain, Reports irregular heart rhythm, Reports palpitations and Denies dyspnea Respiratory: Respiratory: Denies cough and Denies dyspnea Gastrointestinal: Gastrointestinal: Denies abdominal pain, Denies constipation and Denies vomiting Genitourinary: Genitourinary: Denies dysuria Endocrine: Endocrine: Denies fatigue and Reports palpitations PMFSH Past Medical History Medical History No known health problems Surgical History Hx of oral surgery Family History Family History Mother Cervical cancer Hx of diabetes mellitus Hx of essential hypertension Father No problems noted. Brother No problems noted. Brother No problems noted. Brother No problems noted. Sister No problems noted. Sister No problems noted. Sister No problems noted. Social History Social History Household Members: Family Housing: Apartment Alcohol intake: current Alcohol intake frequency: holidays/special occasions only Patient Tobacco Use Status: Former Tobacco user Quit Date: 10 DAYS AGO Advance Directives: No Advance Directives Information Provided: Yes Physical Exam ED Vital Signs: Vital Signs - 24 hr 05/03/22 13:00 05/03/22 14:52 05/03/22 20:00 Temperature 97.8 F 97.7 F 96 F L Pulse Rate 77 80 73 Respiratory Rate 18 18 18 Blood Pressure 157/83 H 142/83 H 141/67 H Pulse Oximetry 93 98 100 Oxygen Delivery Method Room Air Room Air Room Air BMI result Body Mass Index 46.3 Const General: healthy appearing, comfortable, no acute distress, alert and awake Nutritional Appearance: well nourished Orientation/consciousness: patient oriented x3 HENMT Other: No oral: Perioral or retropharyngeal edema Eyes Eyelids: Yes eyelids normal Conjunctivae: conjunctivae normal Sclerae: sclerae normal Corneas: corneas normal Pupils: Equal, round and reactive pupils present EOM: EOMs intact bilaterally Resp Effort & Inspection: normal respiratory effort, able to speak in complete sentences, no audible wheezes and not labored Skin General skin exam: no rashes or lesions noted and elasticity normal Lesions: no lesions Rashes: no rashes Neuro General: patient oriented x3 Cranial nerves: Yes CN's II-XII intact bilaterally, Yes Equal, round and reactive pupils present and Yes Bilaterally intact EOM present Extrem General: Yes full ROM Course Course Course Narrative: RME - [id number], with a past medical history of anemia and morbid obesity, presenting to the emergency department with complaints of palpitations, numbness in her lips and extremities as well as ?seeing lights. ? Plan: The EKG, labs, plan to be seen in ER when room becomes available. Medical Decision Making Medical Decision Making [facility] Narrative: 32-year-old female presenting for evaluation numbness and tingling as well as chest pain and palpitations. Patient has no risk factors for ACS except for obesity. Her workup included labs including troponin, EKG in no significant abnormalities were found. This was out ACS. The patient has had over 3 hours of chest pain negative troponin. Her neurologic exam is benign without deficits. Patient seems most likely related to anxiety which was discussed with the patient. Differential Diagnosis Anxiety Paresthesias Electrolyte abnormality ACS Cardiac arrhythmia Neuropathy Allergic reaction Lab Data MDM Lab Attestation statement: I reviewed the patient's lab results. 05/03/22 12:58 05/03/22 12:58 Labs: Lab Results 05/03/22 05/03/22 05/03/22 Range/Units 12:58 12:58 12:58 WBC 9.5 (4.8-10.8) X10*3/uL RBC 4.31 (4.20-5.50) X10*6/uL Hgb 11.9 L (12.0-16.0) g/dl Hct 37.2 (37.0-47.0) % MCV 86.3 (80.0-98.0) fL MCH 27.6 (27.0-33.0) pg MCHC 32.0 (31.0-35.0) g/dl RDW 13.6 (11.0-16.0) % Plt Count 308 (160-400) X10*3/uL MPV 10.5 (9.4-12.3) fL Immature Gran % (Auto) 0.1 (0.0-0.4) % Neut % (Auto) 58.1 (45-73) % Lymph % (Auto) 35.4 (20-40) % [place] % (Auto) 4.2 (2-11) % Eos % (Auto) 1.9 (0-4) % Baso % (Auto) 0.3 (0-2) % Lymph # (Auto) 3.4 (1.2-4.9) X10*3/uL [place] # (Auto) 0.4 (0.1-1.2) X10*3/uL Eos # (Auto) 0.2 (0.0-0.4) X10*3/uL Baso # (Auto) 0.0 (0.0-0.2) X10*3/uL Abs Immat Gran (auto) 0.01 (0.00-0.03) X10*3/uL Absolute Neuts (auto) 5.5 (2.0-8.3) x10*3/uL Absolute Nucleated RBC 0.000 (0.0-0.012) X10*3/uL Nucleated RBC % (auto) 0.0 (0.0-0.2) /100WBC Sodium 142 (135-145) mmol/L Potassium 3.8 (3.3-5.1) mmol/L Chloride 108 (96-108) mmol/L Carbon Dioxide 28 (22-29) mmol/L Anion Gap 10 L (12-20) BUN 14 (9-16) mg/dL Creatinine 0.85 (0.5-1.4) mg/dL Estim Creat Clear Calc 122.7 Estimated GFR > 60 Random Glucose 103 (60-115) mg/dL Calcium 8.9 (8.4-10.2) mg/dL Troponin I High Sens < 3.5 (<3.5-17.0) ng/L Independent Interpretation I performed an independent interpretation of an: EKG Interpretation: Sinus rhythm without ectopy or acute ischemia Discharge Plan Discharge Clinical Impression: Paresthesias Patient Disposition: Home, Self-Care Instructions: Paresthesia (ED) Additional Instructions: Your workup in the emergency room was reassuring. Her blood work, EKG did not show any concerning abnormalities. Call your doctor in the morning to schedule follow-up for symptoms Prescriptions: No Action cholecalciferol (vitamin D3) 125 mcg (5,000 unit) capsule 125 mcg PO DAILY Qty: 30 3RF amoxicillin 500 mg capsule 1,000 mg PO Q12H 14 Days Qty: 56 0RF clarithromycin 500 mg tablet 500 mg PO Q12H 14 Days Qty: 28 0RF omeprazole 20 mg capsule,delayed release(DR/EC) 20 mg PO BID 14 Days Qty: 28 0RF mecobalamin (vitamin B12) 1,000 mcg tablet,disintegrating 1,000 mcg sublingual DAILY Qty: 30 2RF Rx Instructions: place tablet under tongue and allow to dissolve for at least30 secs before swallowing
[2022-05-03 13:05] LABS: MANUAL DIFF FLAG NO
[2022-05-03 13:08] LABS: Basophils Percent Auto 0.3 % (0-2); Eosinophils Absolute Auto 0.2 X10*3/uL (0.0-0.4); Eosinophils Percent Auto 1.9 % (0-4); Hematocrit 37.2 % (37.0-47.0); Hemoglobin 11.9 g/dl (12.0-16.0); Imm Gran Abs Auto 0.01 X10*3/uL (0.00-0.03); Imm Gran Pct Auto 0.1 % (0.0-0.4); Lymphocytes Absolute Auto 3.4 X10*3/uL (1.2-4.9); Lymphocytes Percent Auto 35.4 % (20-40); Mean Corpuscular Hemoglobin 27.6 pg (27.0-33.0); Mean Corpuscular Volume 86.3 fL (80.0-98.0); Mean Platelet Volume 10.5 fL (9.4-12.3); Monocytes Absolute Auto 0.4 X10*3/uL (0.1-1.2); Monocytes Percent Auto 4.2 % (2-11); Neutrophils Absolute Auto 5.5 x10*3/uL (2.0-8.3); Neutrophils Percent Auto 58.1 % (45-73); Platelet Count 308 X10*3/uL (160-400); Red Blood Count 4.31 X10*6/uL (4.20-5.50); Red Cell Distribution Width 13.6 % (11.0-16.0); White Blood Count 9.5 X10*3/uL (4.8-10.8)
[2022-05-03 13:29] LABS: Anion Gap 10 (12-20); Blood Urea Nitrogen 14 mg/dL (9-16); Calcium 8.9 mg/dL (8.4-10.2); Carbon Dioxide 28 mmol/L (22-29); Chloride 108 mmol/L (96-108); Creatinine Clr Calc Pharmacy 122.7; Estimated Glomerular Filt Rate > 60; Glucose Random 103 mg/dL (60-115); Potassium 3.8 mmol/L (3.3-5.1); Sodium 142 mmol/L (135-145)
[2022-05-03 13:43] LABS: Troponin-I High Sensitivity < 3.5 ng/L (<3.5-17.0)
[2022-05-03 14:52] VITALS: BP 142/83; PULSE 80; RESP 18; TEMP 36.5; O2SAT 98
[2022-05-03 20:00] VITALS: BP 141/67; PULSE 73; RESP 18; TEMP 35.5; O2SAT 100
== END 2022-05-03 20:26 | disposition home or self-care (01) ==
PROVIDERS: Emergency Provider Emergency Medicine
DX: R20.2 Paresthesia of skin (principal); E66.9 Obesity, unspecified; Z68.42 Body mass index [BMI] 45.0-49.9, adult; Z87.891 Personal history of nicotine dependence
CPT/HCPCS: 36415; 80048; 84484; 85025; 93005; 99282; 99284

== ENCOUNTER → 2022-07-12 08:11 | Outpatient (BNVA) | payer MEDICAID, SELFPAY | PROVIDERS: Visit Provider Physician Assistant Surgical | DX: E66.01 Morbid (severe) obesity due to excess calories (principal); Z68.42 Body mass index [BMI] 45.0-49.9, adult | CPT/HCPCS: 99212 ==

== ENCOUNTER → 2022-07-13 07:26 | Outpatient (BNVA) | payer MEDICAID, SELFPAY | PROVIDERS: Visit Provider Physician Assistant Surgical ==

== ENCOUNTER 2022-07-20 07:19 | Outpatient (REF) | payer MEDICAID, SELFPAY ==
[2022-07-20 08:40] LABS: C Reactive Protein 2.11 mg/dL (< or = 0.50); Cholesterol 186 mg/dL; HDL Cholesterol 48 mg/dL; Iron 46 mcg/dL (30-160); LDL Cholesterol Calculated 127 mg/dl; Percent Iron Saturation 16 % (15-50); Total Iron Binding Capacity 285 mcg/dL (228-428); Triglycerides 58 mg/dL; Unsaturated Iron Binding 239 ug/dL
[2022-07-20 09:11] LABS: Ferritin 67 ng/mL (10-122); Folate 14.5 ng/mL (> or = 4.0); TSH reflex Free T4 2.97 uIU/mL (0.32-4.0); Vitamin B12 455 pg/mL (200-900)
[2022-07-24 15:54] LABS: Calcium (PTHI) 8.6 mg/dL (8.6-10.2); PTHI 75 pg/mL (16-77)
[2022-07-26 16:44] LABS: Zinc 72 mcg/dL (60-130)
[2022-07-27 16:48] LABS: Vitamin A 38 mcg/dL (38-98)
[2022-07-28 12:54] LABS: Vitamin B1 12 nmol/L (8-30)
== END 2022-07-20 07:20 | disposition home or self-care (01) ==
LOC: HO.LAB 07:19
PROVIDERS: Visit Provider Physician Assistant Surgical
DX: E66.01 Morbid (severe) obesity due to excess calories (principal); A04.8 Other specified bacterial intestinal infections; E53.8 Deficiency of other specified B group vitamins
CPT/HCPCS: 36415; 80061; 82306; 82607; 82728; 82746; 83540; 83970; 84425; 84443; 84590; 84630; 86140

== ENCOUNTER 2022-07-21 08:20 | Outpatient (REF) | payer MEDICAID, SELFPAY ==
[2022-07-22 13:00] LABS: H Pylori Breath Test Positive (Negative)
== END 2022-07-21 08:21 | disposition home or self-care (01) ==
LOC: HO.LNP 08:20
PROVIDERS: Physician Assistant Surgical; Visit Provider Physician Assistant Surgical
DX: Z01.818 Encounter for other preprocedural examination (principal)
CPT/HCPCS: 83013; 99211

== ENCOUNTER → 2022-08-11 08:20 | Outpatient (BNVA) | payer MEDICAID, SELFPAY | PROVIDERS: Visit Provider Physician Assistant Surgical | DX: E66.01 Morbid (severe) obesity due to excess calories (principal); R10.11 Right upper quadrant pain; Z68.42 Body mass index [BMI] 45.0-49.9, adult | CPT/HCPCS: 99212 ==

== ENCOUNTER 2022-08-11 09:33 | Outpatient (REF) | payer MEDICAID, SELFPAY ==
--- NOTE | ~2022-08-11 | US_ITS ---
EXAMINATION: US ABDOMEN COMPLETE CLINICAL INFORMATION: Right upper quadrant pain. COMPARISON: Previous ultrasound December 2021 TECHNIQUE: Real-time imaging of the abdominal viscera. FINDINGS: PANCREAS: Normal. ABDOMINAL AORTA: The proximal, mid, and distal segments are normal in caliber. INFERIOR VENA CAVA: Visualized portions are normal. LIVER: The liver is normal in size. The liver contour is normal. Liver echotexture is increased. There is a 8 mm cyst in the right lobe. No other focal liver lesion. There is no intrahepatic biliary duct dilatation seen. GALLBLADDER: Normal. The gallbladder is physiologically distended without evidence of stones, sludge, polyps, wall thickening or pericholecystic fluid. COMMON BILE DUCT: Normal in caliber measuring 0.3 cm in diameter. RIGHT KIDNEY: Normal. No hydronephrosis. No renal calculi or focal parenchymal lesions. The kidney measures 9.6 cm in maximum dimension. LEFT KIDNEY: Normal. No hydronephrosis. No renal calculi or focal parenchymal lesions. The kidney measures 10.3 cm in maximum dimension. SPLEEN: Normal. The spleen measures 9 cm in maximum dimension. FREE FLUID: None. US/US abdomen complete IMPRESSION: Slightly echogenic liver. Small liver cyst. Normal-appearing gallbladder.
== END 2022-08-11 09:34 | disposition home or self-care (01) ==
LOC: HO.US 09:33
PROVIDERS: Visit Provider Physician Assistant Surgical
DX: R10.11 Right upper quadrant pain (principal); E66.01 Morbid (severe) obesity due to excess calories
CPT/HCPCS: 76700

== ENCOUNTER → 2022-08-18 08:38 | Outpatient (BNVA) | payer MEDICAID, SELFPAY | PROVIDERS: Referring Provider Physician Assistant Surgical; Visit Provider Dietitian, Registered | DX: E66.01 Morbid (severe) obesity due to excess calories (principal) | CPT/HCPCS: 97803 ==

== ENCOUNTER 2022-08-25 14:00 | Outpatient (AMB) | payer OTHER, SELFPAY ==
--- NOTE | 2022-08-25 14:11 | A.OFFWM_ITS ---
Intake Intake Visit Reasons: VIDEO Intake Allergies ibuprofen [IBUPROFEN] Allergy (Intermediate, Verified 08/29/22 08:47) SWELLING PFSH Medical History No known health problems Surgical History Hx of oral surgery Family History Mother Cervical cancer Hx of diabetes mellitus Hx of essential hypertension Father No problems noted. Brother No problems noted. Brother No problems noted. Brother No problems noted. Sister No problems noted. Sister No problems noted. Sister No problems noted. Social History Household Members: Family Both parents involved: No Housing: Apartment Alcohol intake: current Alcohol intake frequency: holidays/special occasions only Patient Tobacco Use Status: Former Tobacco user Quit Date: 10 DAYS AGO Female Reproductive History Menstrual Age of Menarche: 14 Behavioral Health Assessment Weight Management Therapy Therapy Notes Details PT is a 32 year old female who presents for assessment as part of surgical Weight management program. PT denies any past behavioral health treatment, denies ever been in counseling and/or hospitalized for mental health and also denied any past/current SI and/or any other ly concerns such as self-harm/other-harm. There is no known hx of substance abuse. PT reported a traumatic event in 2020 that lead to emotional eating and contributed to gain most of her overweight, but denied any recent challenge around binge-eating or stress-eating and reported to be using variety of constructive coping skills to distract from unwanted food thoughts. PT also states she's dping the meal plan as indicated and not having issues with that. PHQ-9 scores indicated no active symptoms of depression and BES scores indicate moderate risk however, per interview PT reported changes on eating behavior since engaged in program. PT is cleared but encourage to seek counseling support for grief around loss of a child. Presenting Concerns Referral Source P Provider. Reason for referral Completion of behavioral health assessment as part of process for weight-loss surgery. Precipitating Event Obesity Living Situation Current Living Situation Rent At risk of losing current housing? No Satisfied with current living situation? Yes Comments Pt lives with her mother. Food/Weight/Diet Expectations of change PT wants to be at her healthy weight, feel comfortable with her body. One of the goals is to lose 10% of your weight before surgery, which is about 27 lbs. Ultimate weight goal: 250 Lbs before surgery. History/Relationship with food Usually eats breakfast and dinner, used to skip lunch every day. Sometimes she will snack in between 2 meals. Breakfast/dinner was mainly comfort food such as tacos, ham/cheese sandwiches, rice/beans/meat. Rollins had episodes of eating too much to the point she had to throw-up due to the discomfort. Last time this happened as History/Relationship with weight Was not overweight as a child. [place] as teenager . Gained a lot of weight during . Emotional eating after losing unborn child in 2020. History/Relationship with dieting Fasting, diets, gym membership. Usually tries for 1 months and then will stop because gets tired and don't see results fast enough. Did WMP last year Binge Eating Do you frequently eat large amounts of food in short periods of time, not feeling physically hungry? Yes Do you feel out of control when you eat a large amount of food in a short period of time? No Do you eat large amounts of food rapidly and typically alone? Yes Night Eating Do you wake up at least once during the night to eat? No If you wake up in the night, do you find that it is necessary to eat something in order to fall back asleep? No Do you have little or no appetite in the morning and feel very hungry in the evening, often overeating between dinner and when you go to bed? Yes Social History Family history and relationship Single. PT has 7 siblings. Mother is alive and lives with her. Father is alive, not a close relationship. 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 Developmental history and status None reported. Current WNL. Social support 2 cats. Sister, cousin who had bariatric surgery and mother. Community support None. Religious/Spirituality Yazidism. Cultural/Ethnic information , Born in [place]. Moved to the [facility] at age 5. Bilingual. Legal Involvement and History Current or historical involvement with the legal system? None. Education Highest grade completed High school. 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 Preferred learning style Auditory, Verbal, Written, Learn by doing and Visual Currently enrolled in educational program? No Interested in further educational program? No Educational Interests/Skills Nurnsing. 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 No Meaningful activities Family time, exercise. Financial Situation Describe current financial situation Comfortable Financial assistance? None Service Service? No Mental Health and Addiction Treatment Current/Past substance abuse? Yes (Smoke cigarettes in the past, Quitted in 2020.) Current/Past addictive behavior concerns? No Psychiatric history Never been in counseling and/or hospitalized for mental health. Denies any past/current SI and/other self-harm/other harm. PT reports ongoing struggles after losing unborn child but not interested in treatment at this time. Reports she has supports and feels she's coping well with that. Medical and Physical Health Summary Additional Medical History not covered in history None reported Sexual History concerns None reported. Physical exam in the last year? Yes Pain Screening Current pain? No Pain in the last few months? No Medications Is the patient compliant with medications? Not applicable Does the patient have Harg[place] Guardian in place? Not applicable Does the patient use complimentary health approaches? No Trauma/Abuse History History of trauma? Yes Other Past (Lost unborn child in 2020.) Questionnaires PHQ-9 Over the last 2 weeks, how often have you been bothered by any of the following problems? 1. Little interest or pleasure in doing things: several days 2. Feeling down, depressed, or hopeless: not at all 3. Trouble falling or staying asleep, or sleeping too much: not at all 4. Feeling tired or having little energy: not at all 5. Poor appetite or overeating: not at all 6. Feeling bad about yourself - or that you are a failure or have let yourself or your family down: not at all 7. Trouble concentrating on things, such as reading the newspaper or watching television: not at all 8. Moving or speaking so slowly that other people could have noticed. Or the opposite - being so fidgety or restless that you have been moving around a lot more than usual: not at all 9. Thoughts that you would be better off or of hurting yourself in some way : not at all Total score: 1 Depression Screening Interpretation: Negative Source: Developed by Drs. Meng Pickard, Maryse Khan, Robbin Parrish and colleagues, with an educational pasha from [employer]. Binge Eating Scale Group 1 A. I don't feel self-conscious about my wt. or body size when I'm with others. B. I feel concerned about how I look to others, but it normally does not make me fell disappointed with myself C. I do get self-conscious about my appearance and wt. which makes me feel disappointed in myself. D. I feel very self-conscious about my wt. and frequently I feel intense shame and disgust for myself. I try to avoid social contacts because of my self- consciousness. Response Group 1: D Group 2 A. I don't have any difficulty eating slowly in the proper manner. B. Although I seem to gobble down foods, I don't end up feeling stuffed because of eating to much. C. At times, I tend to eat quickly and then, I feel uncomfortably full afterwards. D. I have the habit of bolting down my food, without really chewing it. When this happens I usually feel uncomfortably stuffed because I've eaten to much. Response Group 2: C Group 3 A. I feel capable to control my eating urges when I want to. B. I feel like I have failed to control my eating more than the average person. C. I feel utterly helpless when it comes to feeling in control of my eating urges. D. Because I feel so helpless about controlling my eating I have become very desperate about trying to get control. Response Group 3: A Group 4 A. I don't have the habit of eating when I'm bored. B. I sometimes eat when I'm bored, but often I'm able to get busy and get my mind off food. C. I have a regular habit of eating when I'm bored, but occasionally, I can use some other activity to get my mind off eating. D. I have a strong habit of eating when I'm bored. Nothing seems to help me breath the habit. Response Group 4: B Group 5 A. I'm usually physically hungry when I eat something. B. Occasionally, I eat something on impulse even though I really am not hungry. C. I have the regular habit of eating foods, that I might not really enjoy, to satisfy a hungry feeling even though physically, I don't need the food. D. Although I'm not physically hungry, I get a hungry feeling in my mouth that only seems to be satisfied when I eat a food, like sandwich, that fills my mouth. Sometimes, when I eat the food to satisfy my mouth hunger, I then spit the food out so I won't gain weight. Response Group 5: A Group 6 A. I don't feel any guilt or self-hate after I overeat. B. After I overeat, occasionally I feel guilt or self-hate. C. Almost all the time I experience strong guilt or self-hate after I overeat. Response Group 6: C Group 7 A. I don't lose total control of my eating when dieting even after periods when I overeat. B. Sometimes when I eat a forbidden food on a diet, I feel like I blew it and eat even more. C. Frequently, I have the habit of saying to myself, I've blown it now, why not go all the way, when I overeat on a diet. When that happens I eat more. D. I have a regular habit of starting a strict diets for myself but I break the diets by going on an eating binge. My life seems to be either a feast or famine. Response Group 7: C Group 8 A. I rarely eat so much food that I feel uncomfortably stuffed afterwards. B. Usually about once a month, I each such a quantity of food, I end up feeling very stuffed. C. I have regular periods during the month when I eat large amounts of food, either at mealtime or at snacks. D. I eat so much food that I regularly feel quite uncomfortable after eating and sometimes a bit nauseous. Response Group 8: D Group 9 A. My level of calorie intake does not go up very high or go down very low on a regular basis. B. Sometimes after I overeat, I will try to reduce my caloric intake to almost nothing to compensate for the excess calories I've eaten. C. I have a regular habit of overeating during the night. It seems that my routine is not to be hungry in the morning but overeat in the evening. D. In my adult years, I have had week-long periods where I practically starve myself. This follows periods when I overeat. It seems I live a life of either feast or famine. Response Group 9: C Group 10 A. I usually am able to stop eating when I want to. I know when enough is enough. B. Every so often, I experience a compulsion to eat which I can't seem to control. C. Frequently, I experience strong urges to eat which I seem unable to control, but at other times I can control my eating urges. D. I feel incapable of controlling urges to eat. I have a fear of not being able to stop eating voluntarily. Response Group 10: A Group 11 A. I don't have any problem stopping eating when I feel full. B. I usually can stop eating when I feel full but occasionally overeat leaving me feeling uncomfortably stuffed. C. I have a problem stopping eating once I start and usually I feel uncomfortably stuffed after I eat a meal. D. Because I have a problem not being able to stop eating when I want, I sometimes have to induce vomiting to relieve my stuffed feeling. Response Group 11: D Group 12 A. I seem to eat just as much when I'm with others, Family social gatherings as when I'm by myself. B. Sometimes, when I'm with other persons, I don't eat as much as I want to eat because I'm self-conscious about my eating. C. Frequently, I eat only a small amount of food when others are present, because I'm very embarrassed about my eating. D. I feel so ashamed about overeating that I pick times to overeat when I know no one will see me. I feel like a closet eater. Response Group 12: A Group 13 A. I eat three meals a day with only an occasional between meal snack. B. I eat 3 meals a day, but I also normally snack between meals. C. When I am snacking heavily, I get in the habit of skipping regular meals. D. There are regular periods when I seem to be continually eating, with no planned meals. Response Group 13: D Group 14 A. I don't think much about trying to control unwanted eating urges. B. At least some of the time, I feel my thoughts are pre-occupied with trying to control my eating urges. C. I feel that frequently I spend much time thinking about how much I ate or about trying not to eat anymore. D. It seems to me that most of my waking hours are pre-occupied by thoughts about eating or not eating. I feel like I'm constantly struggling not to eat. Response Group 14: A Group 15 A. I don't think about food a great deal. B. I have strong craving for food but they last only for brief periods of time. C. I have days when I can't seem to think about anything else but food. D. Most of my days seem to be pre-occupied with thoughts about food. I feel like I live to eat. Response Group 15: A Group 16 A. I usually know whether or not I'm physically hungry. I take the right portion of food to satisfy me. B. Occasionally, I feel uncertain about knowing whether or not I'm physically hungry. A these times it's hard to know how much food I should take to satisfy me. C. Even though I might know how many calories I should eat, I don't have any idea what is a normal amount of food for me. Response Group 16: A Binge Eating Score: 21 Score less than 17 Minimal Risk Score between 18-26 Moderate Risk Score between 27-46 High Risk Assessment & Plan Assessment & Plan (1) Adjustment disorder: Code(s): F43.20 - Adjustment disorder, unspecified Qualifiers: Adjustment disorder type: with mixed disturbance of emotions and conduct Qualified Code(s): F43.25 - Adjustment disorder with mixed disturbance of emotions and conduct Plan Pt is cleared from the behavioral health standpoint. She's encourage to f/up with senior engineering team leader and WMP-provider to continue surgical process. Clinician has advised client about available resources if ever in need to access additional support and has encourage client to participate in post-op groups. Telehealth Telehealth Location of provider rendering services: practice address Location of patient: address on file Patient Identification confirmed using: Name, : Yes Telehealth method: voice only Patient verbally consented to treatment: Yes Patient verbally consented to billing insurance company: Yes Patient informed of any privacy concerns related to visit: Yes Minutes spent on Phone/Video with Pt.: 45 Coding Level of Care Code New Pt Tele Psy Diag Jessica ([id number]) Patient Type New Diagnoses Adjustment disorder F43.25 Adjustment disorder type: with mixed disturbance of emotions and conduct Time Spent (min) 60
== END 2022-08-25 15:00 | disposition home or self-care (01) ==
LOC: HO.HBST 09-12 11:46
PROVIDERS: Visit Provider Counselor Mental Health
DX: F43.25 Adjustment disorder with mixed disturbance of emotions and conduct (principal)
CPT/HCPCS: 90791

== ENCOUNTER → 2022-08-25 14:00 | Outpatient (BNVA) | payer MEDICAID, SELFPAY | PROVIDERS: Visit Provider Counselor Mental Health | DX: F43.25 Adjustment disorder with mixed disturbance of emotions and conduct (principal) ==

== ENCOUNTER 2022-08-29 08:25 | Outpatient (REF) | payer MEDICAID, SELFPAY ==
[2022-09-01 13:34] LABS: H Pylori Breath Test Positive (Negative)
== END 2022-08-29 08:26 | disposition home or self-care (01) ==
LOC: HO.LNP 08:25
PROVIDERS: Visit Provider Physician Assistant Surgical
DX: Z01.818 Encounter for other preprocedural examination (principal)
CPT/HCPCS: 83013; 99211

== ENCOUNTER 2022-12-04 00:18 | Emergency (ER) | payer OTHER, SELFPAY ==
[2022-12-04 00:21] VITALS: BP 157/84; PULSE 80; RESP 18; TEMP 36.1; O2SAT 97; BMI 50.1
[2022-12-04 02:24] LABS: Basophils Percent Auto 0.3 % (0-2); Eosinophils Absolute Auto 0.3 X10*3/uL (0.0-0.4); Eosinophils Percent Auto 3.1 % (0-4); Hemoglobin 11.6 g/dl (12.0-16.0); Imm Gran Abs Auto 0.04 X10*3/uL (0.00-0.03); Imm Gran Pct Auto 0.4 % (0.0-0.4); Lymphocytes Absolute Auto 3.5 X10*3/uL (1.2-4.9); MANUAL DIFF FLAG NO; Mean Corpuscular HGB Conc 32.2 g/dl (31.0-35.0); Mean Corpuscular Hemoglobin 28.2 pg (27.0-33.0); Mean Corpuscular Volume 87.6 fL (80.0-98.0); Mean Platelet Volume 10.6 fL (9.4-12.3); Monocytes Absolute Auto 0.6 X10*3/uL (0.1-1.2); Neutrophils Absolute Auto 5.5 x10*3/uL (2.0-8.3); Neutrophils Percent Auto 55.2 % (45-73); Platelet Count 323 X10*3/uL (160-400); Red Blood Count 4.11 X10*6/uL (4.20-5.50); Red Cell Distribution Width 14.1 % (11.0-16.0)
[2022-12-04 02:38] LABS: Alanine Aminotransferase 11 U/L (0-31); Alkaline Phosphatase 64 U/L (39-117); Anion Gap 13 (12-20); Aspartate Amino Transferase 15 U/L (5-31); Bilirubin Total 0.2 mg/dL (0.0-1.0); Blood Urea Nitrogen 13 mg/dL (9-16); Calcium 9.1 mg/dL (8.4-10.2); Carbon Dioxide 24 mmol/L (22-29); Chloride 108 mmol/L (96-108); Creatinine Clr Calc Pharmacy 136.7; Estimated Glomerular Filt Rate > 60; Glucose Random 95 mg/dL (60-115); Potassium 4.1 mmol/L (3.3-5.1); Sodium 141 mmol/L (135-145); Total Protein 7.3 g/dL (6.5-8.0)
[2022-12-04 02:50] LABS: HCG Quantitative < 2 mIU/mL
[2022-12-04] MEDS: ondansetron HCL 4 MG/2 ML VIAL IVPUSH (03:04)
[2022-12-04] MEDS: Famotidine/PF 20 MG/2 ML VIAL IVPUSH (03:04)
[2022-12-04] MEDS: 0.9 % Sodium Chloride 1,000 ML 999 ML IV (03:04)
[2022-12-04 04:15] VITALS: BP 121/55; PULSE 71; RESP 17; TEMP 36.6; O2SAT 97
--- NOTE | 2022-12-04 06:40 | ED_ITS ---
HPI - General Adult General Chief complaint: General Medical Stated complaint: Vomiting blood Time Seen by Provider: 12/04/22 06:37 Source: RN notes reviewed and old records reviewed History of Present Illness HPI narrative: 32-year-old female with a past medical history of H pylori, anemia, presenting to the ED complaining of epigastric abdominal pain, nausea, and 1 episode of bloody streaked emesis while at work around 23:30 last night. Reports vomited once and was normal then vomited again and noted bloody streaks and presented to the ED. denies fever/chills, diarrhea/constipation, dysuria/hematuria, recent travel, NSAID or ETOH use. Denies dizziness at present Onset (ago): hour(s) Related Data Home Medications Medication Instructions Recorded Confirmed ONE A DAY MULTIVITAMIN PO 07/12/22 08/11/22 Allergies Allergy/AdvReac Type Severity Reaction Status Date / Time ibuprofen [IBUPROFEN] Allergy Intermediate SWELLING Verified 08/29/22 08:47 Review of Systems 2 Review of Systems: Constitutional: No Fever, No Chills, No Fatigue, No Malaise ENT/Mouth: No Ear Pain, No sore throat, No Rhinorrhea, No Swallowing Difficulty Eyes: No Eye Pain, No Swelling, No Redness, No Vision Changes Cardiovascular: No Chest Pain, No SOB, No Palpitations Respiratory: No Cough, No Sputum, No Dyspnea Gastrointestinal: + Nausea, + Vomiting, No Diarrhea, No Constipation, +Abdominal pain, + hematemesis x1 Genitourinary: No irregular bleeding, No Dysuria, No Urinary Frequency, No Hematuria, No Flank Pain Musculoskeletal: No joint pain, No Myalgias, No Joint Swelling Skin: No Skin Lesions, No rash Neuro: No Weakness, No Numbness, No Dizziness, No Headache Yes all other systems are reviewed and are negative Constitutional: Constitutional: Reports as per [facility] Past Medical History Attestation statement: The following information was validated with the patient. Source: old records reviewed Medical History No known health problems Surgical History Hx of oral surgery Family History Family History Mother Cervical cancer Hx of diabetes mellitus Hx of essential hypertension Father No problems noted. Brother No problems noted. Brother No problems noted. Brother No problems noted. Sister No problems noted. Sister No problems noted. Sister No problems noted. Social History Social History Household Members: Family Housing: Apartment Alcohol intake: current Alcohol intake frequency: a few times a month Patient Tobacco Use Status: Former Tobacco user Quit Date: 10 DAYS AGO Smoked in Last 30 Days: No Use of substances other than those prescribed or required for medical reasons: No Advance Directives: No Advance Directives Information Provided: No Physical Exam ED Vital Signs: Vital Signs - 24 hr 12/04/22 00:21 12/04/22 04:15 12/04/22 07:21 Temperature 97 F 97.9 F 98.2 F Pulse Rate 80 71 72 Respiratory Rate 18 17 18 Blood Pressure 157/84 H 121/55 L 140/74 H Pulse Oximetry 97 97 97 Oxygen Delivery Method Room Air Room Air Room Air BMI result Body Mass Index 50.1 Const General: cooperative, healthy appearing and no acute distress Orientation/consciousness: patient oriented x3 Limitations: no limitations HENMT Head: Yes normal to inspection and Yes atraumatic Ears: hearing grossly normal bilaterally General nose exam: Normal external nose present Face and sinus: Yes normal facial exam Eyes General: appearance normal, both eyes and all related structures EOM: EOMs intact bilaterally Neck Neck: Yes normal visual inspection and Yes no meningeal signs Resp Effort & Inspection: normal respiratory effort and no respiratory distress Auscultation: clear to auscultation bilaterally Cardio Rate: regular rate Heart sounds: S1 normal heart sound present and S2 normal heart sound present GI Inspection: Yes normal to inspection Palpation (GI): Soft to palpation, nontender, no guarding and not rigid General: Yes no CVA tenderness Back/Spine/Pelvis Back: no CVA tenderness Skin Rashes: no rashes Wounds: no wounds Neuro General: patient oriented x3, tone normal and no meningeal signs Cranial nerves: Yes CN's II-XII intact bilaterally Gait exam (Neuro): Normal gait present Extrem General: Yes normal to inspection Course Course Course Narrative: -H&H stable/at patient's baseline. Labs otherwise reassuring -0802--UA with blood, rbc's, and wbc's however contaminated with 11-20 epithelials > patient asymptomatic in regards to urinary symptoms will wait for culture likely contaminant > patient is tolerating p.o. in the ED Results discussed with patient including worrisome signs and symptoms and strict return precautions, and when to return to the emergency department. They verbalized understanding and feel safe for discharge at this time. Medications Administered Discontinued Medications Generic Name Dose Route Start Last Admin Trade Name Regine PRN Reason Stop Dose Admin Famotidine 20 mg 12/04/22 02:49 12/04/22 03:04 Famotidine/Pf 20 Mg/2 Ml Vial IVPUSH 12/04/22 02:50 20 mg ONCE ONE Administration Sodium Chloride 1,000 mls @ 999 mls/hr 12/04/22 03:00 12/04/22 04:11 Ns IV 12/04/22 04:00 Infused .Q1H1M CIELO Infusion Ondansetron HCl 4 mg 12/04/22 02:49 12/04/22 03:04 Ondansetron Hcl 4 Mg/2 Ml Vial IVPUSH 12/04/22 02:50 4 mg ONCE ONE Administration Medical Decision Making Medical Decision Making MDM Narrative: 32-year-old female with a past medical history of H pylori, anemia, presenting to the ED complaining of epigastric abdominal pain, nausea, and 1 episode of bloody streaked emesis while at work around 23:30 last night. On exam vital signs stable, NAD, nontoxic appearing, was initially sleeping during initial evaluation, abdomen soft/nontender, reports symptomatic improvement, requesting to be discharged at this time. Denies NSAID/ETOH use. Concern for hematemesis due to repetitive emesis. Low suspicion for [place], Nupur-Flores, pancreatitis, cholecystitis/lithiasis or anemia Plan: Labs, UA, p.o. challenge Please refer to course for remaining clinical decision making, interpretation of labs/imaging results, and discussions with consultants and/or family members. Differential Diagnosis Differential Diagnoses: The differential diagnosis associated with the presentation includes As above Admission/Observation Consideration of admission/observation: Escalation of care including admission/observation considered Lab Data [facility] Lab Attestation statement: I reviewed the patient's lab results. 12/04/22 02:20 12/04/22 02:20 Labs: Lab Results 12/04/22 12/04/22 12/04/22 Range/Units 02:19 02:20 07:20 WBC 10.0 (4.8-10.8) X10*3/uL RBC 4.11 L (4.20-5.50) X10*6/uL Hgb 11.6 L (12.0-16.0) g/dl Hct 36.0 L (37.0-47.0) % MCV 87.6 (80.0-98.0) fL MCH 28.2 (27.0-33.0) pg MCHC 32.2 (31.0-35.0) g/dl RDW 14.1 (11.0-16.0) % Plt Count 323 (160-400) X10*3/uL MPV 10.6 (9.4-12.3) fL Immature Gran % (Auto) 0.4 (0.0-0.4) % Neut % (Auto) 55.2 (45-73) % Lymph % (Auto) 35.0 (20-40) % [place] % (Auto) 6.0 (2-11) % Eos % (Auto) 3.1 (0-4) % Baso % (Auto) 0.3 (0-2) % Lymph # (Auto) 3.5 (1.2-4.9) X10*3/uL [place] # (Auto) 0.6 (0.1-1.2) X10*3/uL Eos # (Auto) 0.3 (0.0-0.4) X10*3/uL Baso # (Auto) 0.0 (0.0-0.2) X10*3/uL Abs Immat Gran (auto) 0.04 H (0.00-0.03) X10*3/uL Absolute Neuts (auto) 5.5 (2.0-8.3) x10*3/uL Absolute Nucleated RBC 0.000 (0.0-0.012) X10*3/uL Nucleated RBC % (auto) 0.0 (0.0-0.2) /100WBC Sodium 141 (135-145) mmol/L Potassium 4.1 (3.3-5.1) mmol/L Chloride 108 (96-108) mmol/L Carbon Dioxide 24 (22-29) mmol/L Anion Gap 13 (12-20) BUN 13 (9-16) mg/dL Creatinine 0.80 (0.5-1.4) mg/dL Estim Creat Clear Calc 136.7 Estimated GFR > 60 Random Glucose 95 (60-115) mg/dL Calcium 9.1 (8.4-10.2) mg/dL Total Bilirubin 0.2 (0.0-1.0) mg/dL AST 15 (5-31) U/L ALT 11 (0-31) U/L Alkaline Phosphatase 64 (39-117) U/L Total Protein 7.3 (6.5-8.0) g/dL Albumin 4.0 (3.5-5.0) g/dL Beta HCG, Quant < 2 mIU/mL Urine Color Yellow Urine Appearance Cloudy Urine pH 5.0 (5.0-9.0) Ur Specific [place] 1.025 (1.005-1.025) Urine Protein Negative (Neg-Trace) mg/dL Urine Glucose (UA) Negative (Negative) mg/dL Urine Ketones Negative (Negative) mg/dL Urine Blood Large (3+) H (Negative) Urine Nitrite Negative (Negative) Ur Leukocyte Esterase Trace H (Negative) Urine RBC >20 H (0-2) /HPF Urine WBC 11-20 H (0-5) /HPF Ur Squamous Epith Cells 11-20 (0-2) /HPF Urine Bacteria 1+ (None Seen) Hyaline Casts 0-2 (0-2) /LPF Urine Test NEGATIVE (NEGATIVE) Radiology Impression Discussion of test interpretation with radiology: I have reviewed the radiologist's reading. External Record Review External record reviewed: Inpatient record, Office record, Outpatient record, Prior outpatient labs, Prior outpatient radiology, Primary care record and Outside ED record Tests considered The following testing was considered but not selected: As above Prescription Management I considered prescription management with: Pain Medication Discharge Plan Discharge Clinical Impression: Nausea & vomiting, Bloody emesis Patient Disposition: Home, Self-Care Instructions: Acute Nausea and Vomiting (ED) Additional Instructions: Your blood work was reassuring Your urine has blood in it however is contaminated. Please follow-up with her primary care doctor for repeat urine outpatient Head make sure he were staying hydrated, practice a bland diet, avoid spicy foods, sweets, caffeine and chocolate as may making more nauseous and vomiting if symptoms persist or worsen return to the ED Prescriptions: No Action ONE A DAY MULTIVITAMIN PO Referrals: [facility] [Primary Care Provider] - Stand Alone Forms: Work/School Release Interventions: ED Discharge Assessment Last Done: 12/04/22 08:37 Discharge Date/Time: 12/04/22 08:38
[2022-12-04 07:21] VITALS: BP 140/74; PULSE 72; RESP 18; TEMP 36.8; O2SAT 97
--- NOTE | 2022-12-04 07:21 | PC.NURSE ---
patient a&ox3, vss, urine obtained, pt c/o mild mid upper abd pain stating its because her stomach is empty, pt inquiring when she can leave as mother wants to go home. call lazaro within reach, will continue to monitor
[2022-12-04 07:35] LABS: Appearance Urine Cloudy; Color Urine Yellow; Glucose Urine UA Negative (Negative); Leukocyte Esterase Urine Trace (Negative); Nitrite Urine Negative (Negative); Specific Gravity - Urine 1.025 (1.005-1.025); UMIC TRIGGER UACC YES; UPreg QC Valid YES; Urine Blood Large (3+) (Negative); Urine Ketones Negative (Negative); Urine Pregnancy NEGATIVE (NEGATIVE); Urine Protein Negative (Neg-Trace)
[2022-12-04 07:37] LABS: Bacteria Urine 1+ (None Seen); Hyaline Casts Urine 0-2 /LPF (0-2); RBC Urine >20 /HPF (0-2); UACC Culture Trigger YES
== END 2022-12-04 08:38 | disposition home or self-care (01) ==
PROVIDERS: Physician Assistant; Emergency Provider Emergency Medicine
DX: K92.0 Hematemesis (principal); R10.13 Epigastric pain; Z87.891 Personal history of nicotine dependence; Z79.899 Other long term (current) drug therapy
CPT/HCPCS: 36415; 80053; 81001; 81025; 84702; 85025; 87086; 96361; 96374; 96375; 99284; J2405

== ENCOUNTER 2022-12-21 18:14 | Emergency (ER) | payer OTHER, SELFPAY ==
--- NOTE | ~2022-12-21 | XR_ITS ---
EXAMINATION: XR LUMBOSACRAL SPINE CLINICAL INFORMATION: Low back pain. COMPARISON: Radiograph lumbar spine 05/07/2019. TECHNIQUE: Three views of the lumbosacral spine. FINDINGS: The vertebral bodies and posterior elements are normal. The disc spaces are preserved and the vertebral alignment is normal. The paraspinal soft tissues are normal. XR/XR lumbar spine 2-3V IMPRESSION: No significant radiographic abnormality to explain the patient's symptoms.
[2022-12-21 19:14] VITALS: BP 138/83; PULSE 84; RESP 16; TEMP 36.6; O2SAT 97; BMI 52.2
--- NOTE | 2022-12-21 19:14 | ED_ITS ---
HPI - Extremity Injury (Lower) General Chief Complaint: Back Pain/Injury Stated Complaint: lower back pain Time Seen by Provider: 12/21/22 20:02 Source: patient Mode of arrival: ambulatory Limitations: no limitations History of Present Illness HPI Narrative: Patient comes to the emergency room complaining of lower back pain. Patient states that approximately a month ago she fell in the kitchen, landed on her but tocks. Then, patient states that she was doing well, then while patient was in an unrelated ED visit here approximately 2 weeks ago, patient states that from sitting too long she started having pain again. Patient denies any secondary injuries, denies fecal/urinary incontinence/retention. Patient states that the pain is localized, does not radiate towards the lower extremities. Related Data Home Medications Medication Instructions Recorded Confirmed ONE A DAY MULTIVITAMIN PO 07/12/22 08/11/22 Previous Rx's Medication Instructions Recorded cyclobenzaprine 10 mg tablet 10 mg PO TID PRN muscle spasm #10 12/21/22 tabs tramadol 50 mg tablet 50 mg PO BID PRN pain #7 tabs 12/21/22 Allergies Allergy/AdvReac Type Severity Reaction Status Date / Time ibuprofen [IBUPROFEN] Allergy Intermediate SWELLING Verified 08/29/22 08:47 Review of Systems Review of Systems: Constitutional : No Weight loss, No Fever, No Chills, No Night Sweats, No Fatigue, No Malaise ENT/Mouth : No Hearing loss, No Ear Pain, No Nasal Congestion, No Sinus Pain, No Hoarseness, No sore throat, No Rhinorrhea, No Swallowing Difficulty Eyes: No Eye Pain, No Swelling, No Redness, No Foreign Body, No Discharge, No Vision Changes Cardiovascular : No Chest Pain, No SOB, No Dyspnea on Exertion, No Orthopnea, No Edema, No Palpitations Respiratory : No Cough, No Sputum, No Wheezing, No Smoke Exposure, No Dyspnea Gastrointestinal : No Nausea, No Vomiting, No Diarrhea, No Constipation, No abdominal Pain, No Hematochezia, No Melena Genitourinary : no irregular bleeding, No Dysuria, No Urinary Frequency, No Hematuria, No Urinary Incontinence, No Urgency, No Flank Pain, No Urinary Flow Changes, No Hesitancy Musculoskeletal : Complaining of lower back pain without radiation, No joint pain, No Myalgias, No Joint Swelling Skin : No Skin Lesions, No rash Neuro : No Weakness, No Numbness, No Paresthesias, No Loss of Consciousness, No Dizziness, No Headache Psych : No Anxiety/Panic, No Depression, No SI/HI/AH/VH, No Social Issues, Heme/Lymph: No Bruising, No Bleeding,No Lymphadenopathy Endocrine : No Polyuria, No Polydipsia, No Temperature Intolerance [facility] Past Medical History Medical History No known health problems Surgical History Hx of oral surgery Family History Family History Mother Cervical cancer Hx of diabetes mellitus Hx of essential hypertension Father No problems noted. Brother No problems noted. Brother No problems noted. Brother No problems noted. Sister No problems noted. Sister No problems noted. Sister No problems noted. Social History Social History Household Members: Family Housing: Apartment Alcohol intake: current Alcohol intake frequency: a few times a month Patient Tobacco Use Status: Former Tobacco user Quit Date: 10 DAYS AGO Advance Directives: No Advance Directives Information Provided: No Physical Exam Vital Signs: Vital Signs: Last Vital Signs Temp 97.8 F 12/21/22 19:14 Pulse 84 12/21/22 19:14 Resp 16 12/21/22 19:14 BP 138/83 12/21/22 19:14 Pulse Ox 97 12/21/22 19:14 O2 Del Method Room Air 12/21/22 19:14 BMI result Body Mass Index 52.2 Const: Other: Appearance: Alert. Oriented X3. No acute distress. Eyes: Pupils equal, round and reactive to light. ENT: Pharynx normal. Neck: Normal inspection. Neck supple. No lymph nodes noted. No crepitus CVS: Normal heart rate and rhythm. Pulses normal. Normal S1 and S2 Respiratory: No respiratory distress. Breath sounds normal. No Wheezing. No rales Abdomen: Soft and nontender. No rigidity. No distention. Back: Pain to palpation in the lumbar area. No ecchymosis, no palpable step- offs. Negative straight leg raise test, normal gait Skin: Skin warm and dry. Normal skin color. Normal skin turgor. Extremities: No lower extremity edema. No Lacerations. No Rash Neuro: Oriented X 3. No motor deficit. No sensory deficit. Moving all extremities. No slurred speech. CN 2 through 12 grossly intact Psych: calm, cooperative, normal affect Course Course Course Narrative: RME: 32yo F w/ PMHx anemia, obesity, c/o low back pain x1 week. 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 denies incontinence/retention, urinary sx, fever ambulating w/steady gait XR ordered Full HPI, ROS and PE to be performed by primary ED provider. Medical Decision Making Medical Decision Making [facility] Narrative: -interpretation of lumbar x-rays: No obvious fracture -I discussed the radiology findings with the patient -patient given 1 dose of IM morphine and Decadron. Patient is allergic to ibuprofen, anaphylaxis. -I discussed with the patient that given the initial injury which happened approximately a month ago, patient still having pain, the next step for definitive treatment would be physical therapy. -patient has normal leg strength and tone, no urinary incontinence or retention, cauda equina not suspect Differential Diagnosis Differential Diagnoses: The differential diagnosis associated with the presentation includes (Lumbar contusion, lumbar fracture, sciatica, lumbar herniation) Independent Interpretation I performed an independent interpretation of an: Plain X-Ray Radiology Impression Discussion of test interpretation with radiology: I have reviewed the radi ologist's reading. Radiologist Impression: FINDINGS: The vertebral bodies and posterior elements are normal. The disc spaces are preserved and the vertebral alignment is normal. The paraspinal soft tissues are normal. XR/XR lumbar spine 2-3V IMPRESSION: No significant radiographic abnormality to explain the patient's symptoms. Discharge Plan Discharge Clinical Impression: Lumbar back pain Patient Disposition: Home, Self-Care Instructions: Acute Low Back Pain (ED), Lower Back Exercises (ED) Additional Instructions: Please follow-up with your primary care physician tomorrow. If you have any worsening or new symptoms, please return to the emergency room or call 911 Prescriptions: New tramadol 50 mg tablet 50 mg PO BID PRN (Reason: pain) Qty: 7 0RF cyclobenzaprine 10 mg tablet 10 mg PO TID PRN (Reason: muscle spasm) Qty: 10 0RF No Action ONE A DAY MULTIVITAMIN PO
[2022-12-21] MEDS: Morphine Sulfate 2 MG/ML CARTRIDGE IM (21:09)
[2022-12-21] MEDS: dexAMETHasone sod phosphate 4 MG/ML VIAL IM (21:09)
[2022-12-21 21:27] VITALS: BP 135/78; PULSE 87; RESP 16; O2SAT 97
== END 2022-12-21 21:30 | disposition home or self-care (01) ==
PROVIDERS: Emergency Provider Emergency Medicine
DX: M54.50 Low back pain, unspecified (principal); E66.01 Morbid (severe) obesity due to excess calories; Z68.43 Body mass index [BMI] 50.0-59.9, adult; Z87.891 Personal history of nicotine dependence
CPT/HCPCS: 72100; 96372; 99284; J1100; J2270

== ENCOUNTER 2023-03-23 08:44 | Emergency (ER) | payer SELFPAY ==
--- NOTE | ~2023-03-23 | XR_ITS ---
EXAMINATION: XR LUMBOSACRAL SPINE CLINICAL INFORMATION: Low back pain. COMPARISON: 12/21/2022 TECHNIQUE: Three views of the lumbosacral spine. FINDINGS: There are 5 nonrib-bearing lumbar vertebral bodies. Normal sagittal alignment. Vertebral body heights and intervertebral disc spaces are maintained. Sacroiliac joints are intact. XR/XR lumbar spine 2-3V IMPRESSION: No acute abnormality.
[2023-03-23 08:47] VITALS: BP 153/87; PULSE 79; RESP 16; TEMP 36.3; O2SAT 98; BMI 48.1
[2023-03-23 10:16] VITALS: BP 126/63; PULSE 80; RESP 16; O2SAT 99
[2023-03-23] MEDS: Acetaminophen 325 MG TABLET 975 MG PO (10:22)
--- NOTE | 2023-03-23 10:26 | ED_ITS ---
HPI - Back Pain/Injury General Chief Complaint: Back Pain/Injury Stated Complaint: Lower back pain Time Seen by Provider: 03/23/23 09:54 Source: patient, RN notes reviewed and old records reviewed Mode of arrival: ambulatory History of Present Illness HPI Narrative: 32-year-old female with a past medical history of anemia, presenting to the ED complaining of acute on chronic low back pain > right with radiation down right lower extremity. Reports fall months ago, denies recent injury/trauma or lifting. Reports pain worse with movement and palpation. Denies fever/chills, incontinence/retention, abdominal pain, nausea/vomiting MD elicited complaint: back pain Related Data Home Medications Medication Instructions Recorded Confirmed ONE A DAY MULTIVITAMIN PO 07/12/22 08/11/22 Previous Rx's Medication Instructions Recorded cyclobenzaprine 10 mg tablet 10 mg PO TID PRN muscle spasm #10 12/21/22 tabs tramadol 50 mg tablet 50 mg PO BID PRN pain #7 tabs 12/21/22 acetaminophen 500 mg tablet 500 mg PO Q6H PRN fever or pain 03/23/23 (Tylenol Extra Strength) #14 tabs cyclobenzaprine 5 mg tablet 5 mg PO Q8H PRN pain (scale score 03/23/23 7-10) 5 days #14 tabs lidocaine 5 % topical patch 1 patch topical DAILY PRN pain #30 03/23/23 (Lidoderm) ea Allergies Allergy/AdvReac Type Severity Reaction Status Date / Time ibuprofen [IBUPROFEN] Allergy Intermediate SWELLING Verified 12/28/22 13:57 Review of Systems Review of Systems: Constitutional: No Fever, No Chills ENT/Mouth: No Ear Pain, No Nasal Congestion, No Rhinorrhea, No Swallowing Difficulty Cardiovascular: No Chest Pain, No SOB Respiratory: No Cough Gastrointestinal: No Nausea, No Vomiting, No Diarrhea, No Constipation, No Abdominal pain Genitourinary: No Dysuria, No Urinary Incontinence/retention Musculoskeletal: + joint pain, No Myalgias, No Joint Swelling Skin: No Skin Lesions, No rash Neuro: No Weakness, No Numbness, No Paresthesias Yes all other systems are reviewed and are negative Constitutional: Constitutional: Reports as per HPI Neurologic: Denies Sensory deficit (Neuro) PMFSH Past Medical History Attestation statement: The following information was validated with the patient. Source: old records reviewed Onset Date is defined in the Problem List Problems that require an onset date and time if occurred within 24 hrs of arrival to the ED Aortic Dissection and Rupture; Neurologic impairment; Cardiopulmonary Arrest; Endotracheal Intubation; Insertion or Replacement of Mechanical Circulatory Assist Device Medical History No known health problems Surgical History Hx of oral surgery Family History Family History Mother Cervical cancer Hx of diabetes mellitus Hx of essential hypertension Father No problems noted. Brother No problems noted. Brother No problems noted. Brother No problems noted. Sister No problems noted. Sister No problems noted. Sister No problems noted. Social History Social History Household Members: Family Housing: Apartment Alcohol intake: never Patient Tobacco Use Status: Former Tobacco user Quit Date: 10 DAYS AGO Advance Directives: No Advance Directives Information Provided: No Physical Exam Vital Signs: Vital Signs: Last Vital Signs Temp 97.4 F 03/23/23 08:47 Pulse 74 03/23/23 11:25 Resp 22 H 03/23/23 11:25 BP 117/96 H 03/23/23 11:25 Pulse Ox 98 03/23/23 11:25 O2 Del Method Room Air 03/23/23 11:25 BMI result Body Mass Index 48.1 Const: General: cooperative, healthy appearing and no acute distress Orientation/consciousness: patient oriented x3 Limitations: no limitations HEENT: Head: Yes normal to inspection and Yes atraumatic Ears: hearing grossly normal bilaterally General nose exam: Normal external nose present Face and sinus: Yes normal facial exam Eyes: General: appearance normal, both eyes and all related structures EOM: EOMs intact bilaterally Neck: Neck: Yes normal visual inspection and Yes no meningeal signs Resp: Effort & Inspection: normal respiratory effort and no respiratory distress Auscultation: clear to auscultation bilaterally Cardio: Rate: regular rate Heart sounds: S1 normal heart sound present and S2 normal heart sound present GI: Inspection: Yes normal to inspection Palpation (GI): Soft to palpation, nontender, no guarding and not rigid : General: Yes no CVA tenderness Back/Spine/Pelvis: Other: No midline cervical/thoracic/lumbar spinous tenderness/step-off or deformity. + right-sided lower lumbar MSK tenderness to palpation. No rash / ecchymosis or erythema Back: no CVA tenderness Skin: Rashes: no rashes Wounds: no wounds Neuro: Other: No midline cervical/thoracic/lumbar spinous tenderness/step-off or deformity General: patient oriented x3, gait normal, tone normal, moves all extremities, no meningeal signs and no focal motor deficits Cranial nerves: Yes CN's II-XII intact bilaterally Gait exam (Neuro): Normal gait present Motor exam (neuro): 5/5 motor strength present throughout Sensory Exam: No Sensory deficit (Neuro) Extrem: General: Yes normal to inspection Course Course Course Narrative: XR lumbar spine 2-3V IMPRESSION: No acute abnormality. Results discussed with patient including worrisome signs and symptoms and strict return precautions, and when to return to the emergency department. They verbalized understanding and feel safe for discharge at this time. Medications Administered Discontinued Medications Generic Name Dose Route Start Last Admin Trade Name Regine PRN Reason Stop Dose Admin Acetaminophen 975 mg 03/23/23 10:03 03/23/23 10:22 Acetaminophen 325 Mg Tablet PO 03/23/23 10:04 975 mg ONCE ONE Administration Cyclobenzaprine HCl 10 mg 03/23/23 11:28 03/23/23 11:36 Cyclobenzaprine Hcl 10 Mg Tablet PO 03/23/23 11:29 10 mg ONCE ONE Administration Lidocaine 1 patch 03/23/23 10:03 03/23/23 10:26 Lidocaine 4 % Patch Adh..Patch TRANSDERMA 03/23/23 10:04 Not Given ONCE ONE Protocol Medical Decision Making Medical Decision Making MDM Narrative: 32-year-old female with a past medical history of anemia, presenting to the ED complaining of acute on chronic low back pain > right with radiation down right lower extremity. On exam VSS, NAD, nontoxic appearing, no midline spinous tenderness throughout or red flag symptoms. Physical exam as noted above. No saddle anesthesia. Concern for MSK pain/strain vs sciatica vs herniated disc. Low suspicion for fracture, cauda equina/cord compression, epidural abscess or renal stone/pyelo plan: X-ray, pain control Please refer to course for remaining clinical decision making, interpretation of labs/imaging results, and discussions with consultants and/or family members. Differential Diagnosis Differential Diagnoses: The differential diagnosis associated with the presentation includes As above Independent Interpretation I performed an independent interpretation of an: Plain X-Ray External Record Review External record reviewed: Inpatient record, Office record, Outpatient record, Prior outpatient labs, Prior outpatient radiology, Primary care record and Out side ED record Tests considered The following testing was considered but not selected: As above Prescription Management I considered prescription management with: Pain Medication Discharge Plan Discharge Clinical Impression: Lumbar radiculopathy Patient Disposition: Home, Self-Care Instructions: Lumbar Radiculopathy (ED) Additional Instructions: Your pain is likely musculoskeletal Flexeril is a muscle relaxer, take at night as it makes you drowsy, do not drive, drink alcohol, or operate machinery while taking it Lidoderm patches are numbing patches, apply to painful area In addition take Tylenol at home If symptoms persist or worsen, pain becomes unbearable, you developed urinary retention or incontinence, or weakness return to the ED Prescriptions: New acetaminophen [Tylenol Extra Strength] 500 mg tablet 500 mg PO Q6H PRN (Reason: fever or pain) Qty: 14 0RF lidocaine [Lidoderm] 5 % adhesive patch,medicated 1 patch topical DAILY MDD remove after 12 hours PRN (Reason: pain) Qty: 30 0RF Rx Instructions: leave on most painful area for up to 12 hrs cyclobenzaprine 5 mg tablet 5 mg PO Q8H PRN (Reason: pain (scale score 7-10)) 5 Days Qty: 14 0RF No Action tramadol 50 mg tablet 50 mg PO BID PRN (Reason: pain) Qty: 7 0RF cyclobenzaprine 10 mg tablet 10 mg PO TID PRN (Reason: muscle spasm) Qty: 10 0RF ONE A DAY MULTIVITAMIN PO
[2023-03-23 11:25] VITALS: BP 117/96; PULSE 74; RESP 22; O2SAT 98
[2023-03-23] MEDS: Cyclobenzaprine HCl 10 MG TABLET PO (11:36)
== END 2023-03-23 12:11 | disposition home or self-care (01) ==
PROVIDERS: Emergency Provider Emergency Medicine
DX: M54.16 Radiculopathy, lumbar region (principal)
CPT/HCPCS: 72100; 99283

== ENCOUNTER → 2023-06-05 15:34 | Outpatient (BNVA) | payer SELFPAY | DX: R76.11 Nonspecific reaction to tuberculin skin test without active tuberculosis (principal) ==

== ENCOUNTER → 2023-08-31 14:46 | Outpatient (BNVA) | payer SELFPAY | PROVIDERS: Visit Provider Physician Assistant | DX: Z02.1 Encounter for pre-employment examination (principal) ==

== ENCOUNTER → 2023-11-01 13:40 | Outpatient (RCR) | payer MEDICAID, SELFPAY ==
--- NOTE | 2020-07-06 14:02 | PM.HEMONCCN ---
Subjective - Subjective Chief complaint: Consult for: Anemia. Patient: new to practice Consult date: 07/06/20 Requesting Physician: DIAGNOSIS: ANEMIA, IN . Primary Care Provider: JET MITCHELL. Medical Summary: DIAGNOSIS: ANEMIA IN . HPI - Consult Narrative Reason for consult: Consult for: Anemia in . Narrative: Noni Ziegler is a pleasant 30 year old lady, at 21 weeks of gestation. CBC revealed from 05/10: WBC 9.8, HGB 10.3, HCT 31.4, MCV 88, PLT 254. Serial hemoglobin: 04/17: 11.7, 04/12:11.3, 10/04/18: 12.4, 07/02/18: 11.3. She had iron studies 07/02/2018: 49/304/16. ROS: She does feel rather fatigued. She gets dizzy at times. No chest pain but she gets trouble breathing. No abdominal pain nausea vomiting heartburn indigestion. Bowels are working without any gross blood in it. Appetite is good. She has gained weight. No urinary complaints. Denies joint pains. No focal deficits. Denies depression. No skin rashes nor pruritus. Visit with Ob, Jet Mitchell, on 07/02: Patient is here for visit at 21 weeks and 5 days she failed her 1 hour GTT and has refused to go for her 3 hour GTT saying that she has no time but she works 3 jobs. She has her niece here with her today for her visit. She wants the test of cure for trichomoniasis . I discussed the high risk that she is in fact gestational diabetic and she is very clear she does not want to do the test. Given this I told her that we need to proceed with 4 times a day testing of her blood sugar for fasting and 2 hours after each meal and I want her to keep track very carefully of her diet and also her activity. Her next visit must be with 1 of the physicians to review her blood sugars in review of her chart I noted that we did not actually have her body mass index recorded as no height had ever been recorded she was measured today and her body mass index is 47+ Also given that though obesity was noted the body mass index had been I had not started her on the aspirin protocol yet I will order today for her. I did discuss the possibility of transfer if her bmi increases or her diabetes indicates a need. also discussed group home health issues. Review of Systems - Constitutional Reports system reviewed and no additional complaints, except as documented, Reports lack of energy, Reports weight gain - Eyes Reports system reviewed and no additional complaints, except as documented - ENT Reports system reviewed and no additional complaints, except as documented - Cardiovascular Reports system reviewed and no additional complaints, except as documented - Respiratory Reports no additional respiratory complaints - Gastrointestinal Reports system reviewed and no additional complaints, except as documented - Genitourinary Reports no additional female genitourinary complaints - Musculoskeletal Reports system reviewed and no additional complaints, except as documented - Integumentary/Breasts Skin/Breast: Reports no additional skin complaints - Neurologic Reports system reviewed and no additional complaints, except as documented - Psychiatric Reports system reviewed and no additional complaints, except as documented - Endocrine Reports no additional endocrine complaints - Hematologic/Lymphatic Reports system reviewed and no additional complaints, except as documented - Allergic/Immunologic Reports system reviewed and no additional complaints, except as documented Oncology Screenings - ECOG Performance Status ECOG Performance Status: 0 [facility] Medical History: Medical History (Last Updated 07/02/20 @ 13:39 by Kirby Eaton [facility]) No known health problems Functional capacity: independent ambulation Patient : Yes Family History: Family History (Last Reviewed 07/02/20 @ 13:04 by Kirby Eaton [facility]) Mother Cervical cancer Mother Hx of diabetes mellitus Hx of essential hypertension Father No problems noted. Social History: Social History (Last Reviewed 07/02/20 @ 13:04 by Kirby Eaton [facility]) Living Situation History: Household Members: Family Housing: Apartment Alcohol History: Alcohol intake: former Smoking status: Former smoker Home Medications and Allergies Home Medications Medication Instructions Recorded Confirmed Type prenat.vits,pushpa,ava-hwbt-srhic 1 tab PO DAILY 05/07/20 05/07/20 History Allergies Allergy/AdvReac Type Severity Reaction Status Date / Time ibuprofen [IBUPROFEN] Allergy Intermediate SWELLING Verified 07/02/20 13:03 Physical Exam - Constitutional Present: mild distress - Routine HEENT Exam Head: Present: normal inspection ENT: Present: mucous membranes moist - Routine Neck Exam Present: supple - Routine Respiratory Exam Present: CTAB - Routine Cardiovascular Exam Cardiovascular: Present: RRR, S1, S2 - Routine Abdominal Exam Present: nontender - Routine Rectal Exam Patient deferred: digital exam - Routine Extremities Exam Present: nontender - Routine Skin Exam Present: intact - Routine Neurological Exam Present: alert, oriented X3 - Detailed Neurological Exam: Coma Scale Eye Opening: Spontaneous (4) Motor Response: Obeys commands (6) - Routine Psychiatric Exam Present: normal affect Assessment and Plan (1) Anemia affecting Status: Acute Qualifiers: Trimester: second trimester Qualified Code(s): O99.012 - Anemia complicating , second trimester This is a pleasant 30-year-old lady who is at 21 weeks of gestation of her . She has been noted to be anemic. Hemoglobin was 10.3. It appears that she has been anemic over the years. DIFFERENTIAL DIAGNOSIS: 1. IRON DEFICIENCY ANEMIA: This is most likely. Her iron profile from May: . 2. ANEMIA OF CHRONIC DISEASE: Is possible since she can have multifactorial anemia. 3. HEMOLYTIC ANEMIA: Less likely. 4. B12 OR FOLATE DEFICIENCY: Coexisting deficiency is possible. 5. MYELO INFILTRATIVE DISORDER: This is less likely at her young age with other explanation for the anemia, including . PLAN: Will proceed with further evaluation. Check iron studies and ferritin: . Check hemolytic screen. Check B12 and folate levels. If she is intolerant to oral iron can arrange IV iron. She will return in 3 months for a follow-up visit. Thank you, CC: Jet Mitchell. Addendum: The patient did not return for labs and for treatment. She said she is going to be followed up at [facility]. I wish her the best of luck.
--- NOTE | 2020-07-19 10:33 | MHC.HEMONCMA ---
Pt notified to get labs done per Dr Geiger ordered.
== END | disposition home or self-care (01) ==
LOC: HO.ONC 07-06
PROVIDERS: Visit Provider Internal Medicine Medical Oncology
DX: O99.012 Anemia complicating pregnancy, second trimester (principal); D64.9 Anemia, unspecified; Z3A.21 21 weeks gestation of pregnancy
CPT/HCPCS: 99204

== ENCOUNTER 2023-11-14 14:30 | Outpatient (REF) | payer MEDICAID, SELFPAY ==
[2023-11-15 04:32] LABS: Syphilis Screen Nonreactive (Nonreactive)
[2023-11-15 05:16] LABS: ~HepC Num1 0.09 S/CO (0.00-0.79); ~Hepatitis C Antibody Nonreactive (Nonreactive)
[2023-11-17 15:33] LABS: HIV RNA PCR Qn Copies NOT DETECTED copies/mL (NOT DETECTED); HIV RNA PCR Qn Log Copies NOT DETECTED (NOT DETECTED)
== END 2023-11-14 14:31 | disposition home or self-care (01) ==
LOC: HO.HHCL 14:30
PROVIDERS: Visit Provider Emergency Medicine
DX: Z11.3 Encounter for screening for infections with a predominantly sexual mode of transmission (principal)
CPT/HCPCS: 36415; 86780; 86803; 87536